=== PATIENT | male | born 1950 | race Caucasian/White ===

== ENCOUNTER 2018-04-14 07:53 | Day surgery (SDC) | payer MEDICARE ==
[~2018-04-14 07:53] MED LIST: LIDOCAINE 1% MDV 20ML VIAL SQ
[2018-04-14] MEDS: LR 1,000 ML IV (08:40)
[2018-04-14] MEDS ORDERED: PROPOFOL 200 MG/20 ML VIAL As Ordered (08:50)
[2018-04-14] MEDS ORDERED: fentaNYL 100 MCG/2 ML INJECTION (J3010) As Ordered (08:50)
[2018-04-14] MEDS ORDERED: LIDOCAINE 2% INJ 100 MG/5 ML SDV (FOR ANES.) As Ordered (08:50)
[2018-04-14] MEDS ORDERED: MIDAZOLAM INJ 2 MG/2 ML VIAL (J2250) As Ordered ×2 (08:50→09:57)
[2018-04-14] MEDS ORDERED: ONDANSETRON 4MG/2ML VIAL (J2405) As Ordered (09:57)
[2018-04-14] MEDS ORDERED: KETOROLAC 60 MG/2 ML VIAL (J1885) As Ordered (09:57)
[2018-04-14] MEDS ORDERED: dexameTHASONE 4 MG/ML 1ML VIAL (J1100) As Ordered (09:57)
[2018-04-14] MEDS: BUPIVACAINE HCL 0.5% 30 ML VIAL As Ordered (10:57)
[2018-04-14] MEDS: BUPIVACAINE LIPOSOME/PF 1.3% 20ML VIAL (13.3MG/ML)(EXPAREL)(C9290 PER1MG) As Ordered (10:57)
[2018-04-14] MEDS ORDERED: MEPERIDINE INJ 25 MG/ML VIAL (J2175) IV (11:45)
[2018-04-14] MEDS ORDERED: ONDANSETRON 4MG/2ML VIAL (J2405) IV (11:45)
[2018-04-14] MEDS ORDERED: fentaNYL 100 MCG/2 ML INJECTION (J3010) IV (11:45)
[2018-04-14] MEDS ORDERED: IBUPROFEN 600 MG TAB PO (11:45)
[2018-04-14] MEDS ORDERED: ACETAMINOPHEN TAB 650MG DOSE (2X325MG) PO (11:45)
[2018-04-14] MEDS ORDERED: PERCOCET 5MG/325MG TAB PO (11:45)
[2018-04-14] MEDS ORDERED: METOCLOPRAMIDE INJ 10MG/2ML VIAL (J2765) IV (11:45)
[2018-04-14] MEDS ORDERED: LR 1,000 ML IV (11:45)
[2018-04-14] MEDS ORDERED: BUPIVACAINE/DEXTROSE 0.75% 2 ML AMP As Ordered (12:21)
== END 2018-04-14 15:30 | disposition home or self-care (01) ==
LOC: M SDC 07:53
DX: K64.8 Other hemorrhoids (principal); E78.00 Pure hypercholesterolemia, unspecified
CPT/HCPCS: 46260

== ENCOUNTER → 2019-08-06 | Outpatient (CLI) | payer MEDICARE ==
[~2019-08-06] MED LIST changes: +FISH120016 PO; -LIDOCAINE 1% MDV 20ML VIAL SQ; +MULT1TAB10 PO; +SILD50TA PO; +VITA50005 PO
[2019-08-06 13:18] LABS: BASO % 0.3 % (0.0-1.0); EOS % 0.3 % (0.0-3.0); HEMATOCRIT 46.9 % (42.0-52.0); HEMOGLOBIN 15.7 g/dl (13.5-17.5); LYMPH # 0.9 10^3/uL (1.5-5.0); LYMPH % 5.6 % (24.0-44.0); MEAN CORPUSCULAR HEMOGLOBIN 32.2 pg (27.0-33.0); MEAN CORPUSCULAR HGB CONC 33.5 g/dl (32.0-36.5); MEAN CORPUSCULAR VOLUME 96.3 fl (80.0-96.0); MONO # 1.1 10^3/uL (0.0-0.8); MONO % 7.1 % (0.0-5.0); NEUTROPHILS # 13.3 10^3/uL (1.5-8.5); NEUTROPHILS % 86.4 % (36.0-66.0); PLATELET COUNT, AUTOMATED 239 10^3/uL (150-450); RED BLOOD COUNT 4.87 10^6/uL (4.30-6.10); WHITE BLOOD COUNT 15.4 10^3/uL (4.0-10.0)
[2019-08-06 13:45] LABS: ALBUMIN 3.4 GM/DL (3.2-5.2); ALT/SGPT 18 U/L (12-78); BILIRUBIN,TOTAL 0.9 MG/DL (0.2-1.0); BLOOD UREA NITROGEN 8 MG/DL (7-18); CALCIUM LEVEL 8.8 MG/DL (8.8-10.2); CARBON DIOXIDE LEVEL 31 MEQ/L (21-32); CHLORIDE LEVEL 103 MEQ/L (98-107); CREATININE FOR GFR 1.07 MG/DL (0.70-1.30); GLOMERULAR FILTRATION RATE > 60.0 (>42); GLUCOSE, FASTING 128 MG/DL (70-100); POTASSIUM SERUM 4.4 MEQ/L (3.5-5.1); SODIUM LEVEL 138 MEQ/L (136-145); TOTAL PROTEIN 6.7 GM/DL (6.4-8.2)
[2019-08-06 13:55] LABS: HEMOGLOBIN A1c 5.5 %
== END ==
LOC: M WUC 10:00
PROVIDERS: ATTEND Physician Assistant
DX: R30.0 Dysuria (principal); Z79.899 Other long term (current) drug therapy

== ENCOUNTER → 2020-10-21 | Outpatient (REF) | payer MEDICARE | LOC: M WUC 21:19 | PROVIDERS: ATTEND Physician Assistant | DX: N39.0 Urinary tract infection, site not specified (principal) ==

== ENCOUNTER → 2020-10-28 | Outpatient (REF) | payer MEDICARE | LOC: M WUC 13:14 | PROVIDERS: ATTEND Physician Assistant | DX: R30.0 Dysuria (principal) ==

== ENCOUNTER 2020-11-03 07:25 | Emergency (ER) | payer MEDICARE ==
[~2020-11-03] VITALS: Ht 182.9 cm; Wt 74.5 kg
[2020-11-03 10:07] LABS: BASO # 0.1 10^3/uL (0.0-0.2); BASO % 0.4 % (0.0-1.0); EOS # 0.1 10^3/uL (0.0-0.5); EOS % 0.5 % (0.0-3.0); HEMATOCRIT 47.3 % (42.0-52.0); HEMOGLOBIN 15.5 g/dl (13.5-17.5); LYMPH # 1.9 10^3/uL (1.5-5.0); LYMPH % 12.1 % (24.0-44.0); MEAN CORPUSCULAR HEMOGLOBIN 31.3 pg (27.0-33.0); MEAN CORPUSCULAR HGB CONC 32.8 g/dl (32.0-36.5); MEAN CORPUSCULAR VOLUME 95.4 fl (80.0-96.0); MONO # 0.8 10^3/uL (0.0-0.8); MONO % 4.8 % (2.0-8.0); NEUTROPHILS # 12.8 10^3/uL (1.5-8.5); NEUTROPHILS % 81.6 % (36.0-66.0); PLATELET COUNT, AUTOMATED 347 10^3/uL (150-450); RED BLOOD COUNT 4.96 10^6/uL (4.30-6.10); WHITE BLOOD COUNT 15.7 10^3/uL (4.0-10.0)
--- NOTE | 2020-11-03 10:14 | REP ---
INDICATION: hematuria. COMPARISON: None. TECHNIQUE: Noncontrast enhanced stone protocol technique using standard helical scanning FINDINGS: The lung bases are clear. Limited evaluation of the solid intra-abdominal organs and gallbladder show no gross abnormalities. Limited evaluation of the pancreas, adrenal glands, and kidneys show no gross abnormalities. There is no nephroureterolithiasis, hydronephrosis, or hydroureter. There are no urinary bladder calcifications. The urinary bladder wall does appear to be somewhat thickened. Limited evaluation of the bowel loops shows sigmoid colon diverticulosis. There is a haziness seen throughout the central mesentery likely secondary to mild chronic mesenteric fibrosis. Limited evaluation of the abdominal aorta and para-aortic regions show no gross abnormalities. There is no free fluid or free air. There is no mass or adenopathy. Bone window technique throughout the examination shows the osseous structures to be within normal limits. IMPRESSION: 1. There is some evidence of thickening of the urias of the urinary bladder which need to be correlated clinically. Cystitis cannot be ruled out. 2. Sigmoid colon diverticulosis. 3. Other findings as described. <Electronically signed by Juan Jose Yanez > 11/03/20 1011
[2020-11-03 10:18] LABS: INR 1.06
[2020-11-03 10:19] LABS: PARTIAL THROMBOPLASTIN TIME 25.8 SECONDS (24.2-38.5)
[2020-11-03 10:34] LABS: ALBUMIN 3.2 GM/DL (3.2-5.2); ALT/SGPT 33 U/L (12-78); BILIRUBIN,TOTAL 0.4 MG/DL (0.2-1.0); BLOOD UREA NITROGEN 12 MG/DL (7-18); CALCIUM LEVEL 8.7 MG/DL (8.8-10.2); CARBON DIOXIDE LEVEL 30 MEQ/L (21-32); CHLORIDE LEVEL 107 MEQ/L (98-107); CREATININE FOR GFR 0.77 MG/DL (0.70-1.30); GLOMERULAR FILTRATION RATE > 60.0 (>42); GLUCOSE, FASTING 89 MG/DL (70-100); POTASSIUM SERUM 4.3 MEQ/L (3.5-5.1); SODIUM LEVEL 141 MEQ/L (136-145); TOTAL PROTEIN 6.9 GM/DL (6.4-8.2)
[2020-11-03 11:56] VITALS: BP 161/75
== END 2020-11-03 12:11 | disposition home or self-care (01) ==
LOC: M ED 07:25
DX: R31.9 Hematuria, unspecified (principal)

== ENCOUNTER → 2020-11-14 | Outpatient (REF) | payer MEDICARE ==
[2020-11-14 13:48] LABS: APPEARANCE, URINE CLEAR (CLEAR); BACTERIA, URINE AUTO NEGATIVE (NEGATIVE); BILIRUBIN, URINE AUTO NEGATIVE (NEGATIVE); BLOOD, URINE BLOOD 2+ (NEGATIVE); COLOR, URINE STRAW (YELLOW); GLUCOSE, URINE (UA) AUTO NEGATIVE (NEGATIVE); KETONE, URINE AUTO NEGATIVE (NEGATIVE); LEUKOCYTE ESTERASE, URINE AUTO 3+ (NEGATIVE); NITRITE, URINE AUTO NEGATIVE (NEGATIVE); PROTEIN, URINE AUTO NEGATIVE (NEGATIVE); RBC, URINE AUTO 0 /HPF (0-3); SPECIFIC GRAVITY URINE AUTO 1.004 (1.002-1.035); SQUAMOUS EPITHELIAL CELL UR AU 0 /HPF (0-6); UROBILINOGEN, URINE AUTO 0.2 mg/dL (0.0-2.0); WBC, URINE AUTO 83 /HPF (0-3)
== END ==
LOC: M SMT 13:01
PROVIDERS: ATTEND Urology
DX: R31.0 Gross hematuria (principal)
CPT/HCPCS: 81001; 87086; 88108; G0463

== ENCOUNTER → 2021-01-01 | Outpatient (REF) | payer MEDICARE ==
[2021-01-01 19:21] LABS: APPEARANCE, URINE HAZY (CLEAR); BACTERIA, URINE AUTO 1+ (NEGATIVE); BILIRUBIN, URINE AUTO NEGATIVE (NEGATIVE); BLOOD, URINE BLOOD NEGATIVE (NEGATIVE); COLOR, URINE YELLOW (YELLOW); GLUCOSE, URINE (UA) AUTO NEGATIVE (NEGATIVE); KETONE, URINE AUTO NEGATIVE (NEGATIVE); LEUKOCYTE ESTERASE, URINE AUTO 1+ (NEGATIVE); NITRITE, URINE AUTO NEGATIVE (NEGATIVE); PROTEIN, URINE AUTO NEGATIVE (NEGATIVE); RBC, URINE AUTO 1 /HPF (0-3); SPECIFIC GRAVITY URINE AUTO 1.012 (1.002-1.035); SQUAMOUS EPITHELIAL CELL UR AU 0 /HPF (0-6); UROBILINOGEN, URINE AUTO 0.2 mg/dL (0.0-2.0); WBC, URINE AUTO 27 /HPF (0-3)
== END ==
LOC: M SMT 17:20
PROVIDERS: ATTEND Urology
DX: N30.00 Acute cystitis without hematuria (principal)

== ENCOUNTER → 2021-02-11 | Outpatient (CLI) | payer MEDICARE ==
[2021-02-11 15:56] LABS: APPEARANCE, URINE CLEAR (CLEAR); BACTERIA, URINE AUTO NEGATIVE (NEGATIVE); BILIRUBIN, URINE AUTO NEGATIVE (NEGATIVE); BLOOD, URINE BLOOD NEGATIVE (NEGATIVE); COLOR, URINE STRAW (YELLOW); GLUCOSE, URINE (UA) AUTO NEGATIVE (NEGATIVE); KETONE, URINE AUTO NEGATIVE (NEGATIVE); LEUKOCYTE ESTERASE, URINE AUTO NEGATIVE (NEGATIVE); NITRITE, URINE AUTO NEGATIVE (NEGATIVE); PROTEIN, URINE AUTO NEGATIVE (NEGATIVE); RBC, URINE AUTO 2 /HPF (0-3); SPECIFIC GRAVITY URINE AUTO 1.006 (1.002-1.035); SQUAMOUS EPITHELIAL CELL UR AU 0 /HPF (0-6); UROBILINOGEN, URINE AUTO 0.2 mg/dL (0.0-2.0); WBC, URINE AUTO 0 /HPF (0-3)
[2021-02-11 16:31] LABS: ALBUMIN 3.2 GM/DL (3.2-5.2); ALT/SGPT 26 U/L (12-78); BILIRUBIN,TOTAL 0.5 MG/DL (0.2-1.0); BLOOD UREA NITROGEN 15 MG/DL (7-18); CALCIUM LEVEL 8.8 MG/DL (8.8-10.2); CARBON DIOXIDE LEVEL 33 MEQ/L (21-32); CHLORIDE LEVEL 103 MEQ/L (98-107); CHOLESTEROL LEVEL 149 MG/DL (<200); CHOLESTEROL RISK RATIO 3.725 (<5); CREATININE FOR GFR 0.95 MG/DL (0.70-1.30); GLOMERULAR FILTRATION RATE > 60.0 (>42); GLUCOSE, FASTING 100 MG/DL (70-100); HDL CHOLESTEROL 40 MG/DL (>40); LDL CHOLESTEROL 87 MG/DL (<100); NON-HDL-C 109 MG/DL; POTASSIUM SERUM 4.6 MEQ/L (3.5-5.1); SODIUM LEVEL 138 MEQ/L (136-145); TOTAL PROTEIN 6.4 GM/DL (6.4-8.2); TRIGLYCERIDES LEVEL 108 MG/DL (<150)
== END ==
LOC: M WUC 14:21
PROVIDERS: ATTEND Nurse Practitioner Family
DX: Z00.00 Encounter for general adult medical examination without abnormal findings (principal); Z79.899 Other long term (current) drug therapy
CPT/HCPCS: 36415; 80053; 80061; 81001; G0103

== ENCOUNTER → 2021-03-22 | Outpatient (CLI) | payer MEDICARE ==
[~2021-03-22] MED LIST changes: +ALFU10TA3 PO; +ERGO500029 PO; +TAMS1CAP17 PO; +VITMTA PO
== END ==
LOC: M LABSMTC 10:43
PROVIDERS: ATTEND Anesthesiology
DX: Z01.818 Encounter for other preprocedural examination (principal); Z20.828 Contact with and (suspected) exposure to other viral communicable diseases

== ENCOUNTER 2021-03-27 08:54 | Day surgery (SDC) | payer MEDICARE ==
[~2021-03-27] VITALS: Ht 182.9 cm; Wt 76.2 kg
[~2021-03-27 08:54] MED LIST changes: +LIDOCAINE 2% 100MG/5ML SDV (FOR ANES.) As Ordered ONE; +NS 1,000 ML IV ONE; +propofoL 200 MG/20 ML VIAL As Ordered ONE
--- OUTSIDE RECORDS SUMMARY | 2021-03-27 08:59 | CCD | Continuity of Care Document ---
Author Author Vasyl [facility] Organization Unknown Address [address] [place] [address] Phone [phone] Care Team Providers Care Chief Revenue Officer Name Role Phone [facility] - Otolaryngology AUTM [phone] Problems Active Problems Provider Date Allergic rhinitis Anurag Graham M.D. Onset: 2010 Vitamin D deficiency Anurag Graham M.D. Onset: 11/20 Mixed hyperlipidemia Anurag Graham M.D. Onset: 11/20 Social History Type Date Description Comments Sex Unknown Tobacco Use Start: Unknown End: Unknown former cigarette smo ker Tobacco Use Start: Unknown Never Used Smokeless Tobacco ETOH Use Consumes 1 beer per week Tobacco Use Start: Unknown End: Unknown Patient is a former smoker Smoked ocassionally 50 years ago Recreational Drug Use Never Used Drugs Exercise Type/Frequency Exercises regularly Sun Exposure Does not use sunscreen Seat Belt/Car Seat Always uses seat belt Smoke Alarms Yes Smoke Alarms Carbon Monoxide Detector: Yes Allergies, Adverse Reactions, Alerts Description No Known Drug Allergies Medications Active Medications SIG Qnty Indications Ordering Provide r Date Vitamin D (Ergocalciferol) 1.25mg (58350 Ut) Capsules take 1 capsule by mouth once weekly 12caps Clau Quispe FNP 11/28/2019 Sildenafil Citrate 100mg Tablets 1/2-1 tab by mouth at least 30 minutes prior to intercourse 30tabs Clau Stafford FNP 01/31/2019 Multivitamin Adults 50+ Adlt 50+ T ablets daily Unknown Fish Oil Burp-Less 1200mg Capsules daily Unknown Tamsulosin HCL 0.4mg Capsules take one capsule by mouth every day for prostate Unknown Immunizations CPT Code Status Date Vaccine Lot # [id number] Given 02/20/2021 Influenza Virus Vaccine, Ramy drivalent,multidose vial [id number] Given 07/21/2020 Moderna Sars-(Co vid-19) vaccine, mRNA, LNP-S, PF, 100 mcg/ 0.5 mL [id number] Given 06/23/2020 Moderna Sars-(Co vid-19) vaccine, mRNA, LNP-S, PF, 100 mcg/ 0.5 mL 32571 Given 02/20/2020 Influenza Virus Vaccine, Ramy drivalent,multidose vial [id number] Given 02/17/2019 Influenza Virus Vaccine, Ramy drivalent,multidose vial [id number] 12498 Given 02/15/2018 Influenza Virus Vaccine, Ramy drivalent,multidose vial [id number] Given 02/05/2017 Influenza Vaccine (Fluzone)( medicare) [id number] 34985 Given 02/07/2016 Pneumococcal Vaccine [id number] Given 01/31/2016 Influenza Vaccine (Fluzone)( medicare) [id number] 41501 Given 01/31/2015 Boostrix (Tdap) Tetnus, Diphtheria Toxoids & Acellular Pertussis [id number] 06963 Given 01/31/2015 Prevnar 13 [id number] Given 01/29/2015 Zostavax Vital Signs Date Vital Result Comment 02/20/2021 9:12am BP Systolic 121 mmHg BP Diastolic 59 mmHg Heart Rate 68 /min Body Temperature 97.0 F Respiratory Rate 16 /min Height 71 inches 5'11" Weight 171.25 lb O2 % BldC Oximetry 98 % Peak Expiratory Flow Rate 509 Estimated Peak Flow Rate [place] Body Weight 172 lb BMI (Body Mass Index) 23.9 kg/m2 02/20/2020 8:45am BP Systolic 126 mmHg BP Diastolic 62 mmHg Heart Rate 67 /min Body Temperature 97.6 F Respiratory Rate 15 /min Height 71 inches 5'11" Weight 168.12 lb O2 % BldC Oximetry 98 % Peak Expiratory Flow Rate 497 Estimated Peak Flow Rate [place] Body Weight 172 lb BMI (Body Mass Index) 23.4 kg/m2 Results Test Acquired Date Facility Test Result H/L Range Note Comprehensive Metabolic Profil 02/11/2021 [facility] [phone] Glucose, Fasting 100 mg/dL Normal 70-100 Blood Urea Nitrogen 15 mg/dL Normal 7-18 Creatinine For GFR 0.95 mg/dL Normal 0.70-1.30 Glomerular Filtration Rate > 60.0 Normal >42 1 Sodium Level 138 mEq/L Normal 136-145 Potassium Serum 4.6 mEq/L Normal 3.5-5.1 Chloride Level 103 mEq/L Normal 98-107 Carbon Dioxide Level 33 mEq/L High 21-32 Anion Gap 2 mEq/L Low 8-16 Calcium Level 8.8 mg/dL Normal 8.8-10.2 Ast/Sgot 16 U/L Normal 7-37 Alt/SGPT 26 U/L Normal 12-78 Alkaline Phosphatase 57 U/L Normal 45-117 Bilirubin,Total 0.5 mg/dL Normal 0.2-1.0 Total Protein 6.4 GM/DL Normal 6.4-8.2 Albumin 3.2 GM/DL Normal 3.2-5.2 Albumin/Globulin Ratio 1.0 Normal Lipid Panel [facility] [phone] Triglycerides Level 108 mg/dL Normal <150 Cholesterol Level 149 mg/dL Normal <200 HDL Cholesterol 40 mg/dL Normal >40 LDL Cholesterol 87 mg/dL Normal <100 Non-HDL-C 109 mg/dL Normal Cholesterol Risk Ratio 3.725 Normal <5 Ua Routine 02/11/[facility] [phone] Appearance, Urine CLEAR Normal Clear Color, Urine STRAW Normal Yellow PH,Urine 6.0 units Normal 5.0-9.0 Specific [place] Urine Auto 1.006 Normal 1.002-1.035 Protein, Urine Auto NEGATIVE mg/dL Normal Negative Glucose, Urine (Ua) Auto NEGATIVE mg/dL Normal Negative Ketone, Urine Auto NEGATIVE mg/dL Normal Negative Urobilinogen, Urine Auto 0.2 mg/dL Normal 0.0-2.0 Bilirubin, Urine Auto NEGATIVE Normal Negative Nitrite, Urine Auto NEGATIVE Normal Negative Leukocyte Esterase, Urine Auto NEGATIVE Normal Negative Blood, Urine Blood NEGATIVE Normal Negative WBC, Urine Auto 0 /HPF Normal 0-3 RBC, Urine Auto 2 /HPF Normal 0-3 Bacteria, Urine Auto NEGATIVE Normal Negative Squamous Epithelial Cell Ur AU 0 /HPF Normal 0-6 Hyaline Cast, Urine Auto 0 /LPF Normal 0-1 Laboratory test finding 02/11/2021 [facility] [phone] PSA Screening 4.91 NG/ML High < 4.00 2 CBC With Differential 11/03/2020 [facility] [place] [address] [phone] White Blood Count 15.7 10 High 4.0-10.0 Red Blood Count 4.96 10 Normal 4.30-6.10 Hemoglobin 15.5 g/dL Normal 13.5-17.5 Hematocrit 47.3 % Normal 42.0-52.0 Mean Corpuscular Volume 95.4 fl Normal 80.0-96.0 Mean Corpuscular Hemoglobin 31.3 pg Normal 27.0-33.0 Mean Corpuscular HGB Conc 32.8 g/dL Normal 32.0-36.5 Red Cell Distribution Width 12.3 % Normal 11.5-14.5 Platelet Count, Automated 347 10 Normal 150-450 Neutrophils % 81.6 % High 36.0-66.0 Lymph % 12.1 % Low 24.0-44.0 Orange % 4.8 % Normal 2.0-8.0 Eos % 0.5 % Normal 0.0-3.0 Baso % 0.4 % Normal 0.0-1.0 Immature Granulocyte % 0.6 % Normal 0-3.0 Nucleated Red Blood Cell % 0.0 % Normal 0-0 Neutrophils # 12.8 10 High 1.5-8.5 Lymph # 1.9 10 Normal 1.5-5.0 Orange # 0.8 10 Normal 0.0-0.8 Eos # 0.1 10 Normal 0.0-0.5 Baso # 0.1 10 Normal 0.0-0.2 PT & Aptt 11/03/2020 [place] [address] [phone] Prothrombin Time 14.0 seconds Normal 12.5-14.3 Inr 1.06 Normal 3 Partial Thromboplastin Time 25.8 seconds Normal 24.2-38.5 Comprehensive Metabolic Profil 11/03/2020 [place], [place] [address] [phone] Glucose, Fasting 89 mg/dL Normal 70-100 Blood Urea Nitrogen 12 mg/dL Normal 7-18 Creatinine For GFR 0.77 mg/dL Normal 0.70-1.30 Glomerular Filtration Rate > 60.0 Normal >42 4 Sodium Level 141 mEq/L Normal 136-145 Potassium Serum 4.3 mEq/L Normal 3.5-5.1 Chloride Level 107 mEq/L Normal 98-107 Carbon Dioxide Level 30 mEq/L Normal 21-32 Anion Gap 4 mEq/L Low 8-16 Calcium Level 8.7 mg/dL Low 8.8-10.2 Ast/Sgot 15 U/L Normal 7-37 Alt/SGPT 33 U/L Normal 12-78 Alkaline Phosphatase 68 U/L Normal 45-117 Bilirubin,Total 0.4 mg/dL Normal 0.2-1.0 Total Protein 6.9 GM/DL Normal 6.4-8.2 Albumin 3.2 GM/DL Normal 3.2-5.2 Albumin/Globulin Ratio 0.9 Normal Ua W/ Reflex To Culture 11/03/2020 Patient Service [facility] [place], [place] [id number] [phone] Appearance, Urine RFX CLOUDY High Clear Color, Urine RFX ELSY Normal Yellow PH,Urine RFX 6.0 units Normal 5.0-9.0 Specific [place] Ur Auto RFX 1.023 Normal 1.002-1.035 Protein, Urine Auto RFX 2+ mg/dL High Negative Glucose, Urine (Ua) Auto RFX NEGATIVE mg/dL Normal Negative Ketone, Urine Auto RFX NEGATIVE mg/dL Normal Negative Urobilinogen, Urine Auto RFX 0.2 mg/dL Normal 0.0-2.0 Bilirubin, Urine Auto RFX NEGATIVE Normal Negative Nitrite, Urine Auto RFX NEGATIVE Normal Negative Leukocyte Esterase Ur Auto RFX 2+ High Negative Blood, Urine Blood RFX 3+ High Negative WBC, Urine Auto RFX TNTC /HPF High 0-3 RBC, Urine Auto RFX TNTC /HPF High 0-3 Bacteria, Urine Auto RFX NEGATIVE Normal Negative Squam Epithelial Cell Ur Aurfx 0 /HPF Normal 0-6 Renal Epithelial Cells RFX 2 /HPF Normal None Mucus, Urine RFX SMALL Normal Negative Hyaline Cast, Urine Auto RFX 0 /LPF Normal 0-1 Reflex Urine Culture 11/03/2020 Patient Service [facility] [place] [address] [phone] Reflex Urine Culture FULL REPORT IN L <SEE NOTE> Norm al 5 1 Units are mL/min/1.73 m2 Chronic Kidney Disease Staging per NKF: Stage I & II GFR >=60 Normal to Mildly Decreased Stage III GFR 30-59 Moderately Decreased Stage IV GFR 15-29 Severely Decreased Stage V GFR <15 Very Little GFR Left ESRD GFR <15 on SEWER HAND 2 The PSA assay is performed o n the Siemens Mccormick analyzer by LOCI sandwich chemiluminescent immunoassay and should not be compared interchangeably with other methods. It should not be used alone as a screening test or diagnosis for the presence or absence of malignant disease. Predictions of disease recurrence should not be based solely on values obtained from serial patient serum values. 3 THERAPUTIC HUMAN INR VALUES INDICATIONS NORMAL RANGES PROPHYLAXIS/TREATMENT OF: VENOUS THROMBOSIS 2.0-3.0 PULMONARY EMBOLISM 2.0-3.0 PREVENTION OF SYSTEMIC EMBOLISM FROM: TISSUE HEART VALVES 2.0-3.0 ACUTE MYOCARDIAL INFARCTION 2.0-3.0 VALVULAR HEART DISEASE 2.0-3.0 ATRIAL FIBRILLATION 2.0-3.0 MECHANICAL VALVES(HIGH RISK) 2.5-3.5 RECURRENT MYOCARDIAL INFARCTION 2.5-3.5 4 Units are mL/min/1.73 m2 Chronic Kidney Disease Staging per NKF: Stage I & II GFR >=60 Normal to Mildly Decreased Stage III GFR 30-59 Moderately Decreased Stage IV GFR 15-29 Severely Decreased Stage V GFR <15 Very Little GFR Left ESRD GFR <15 on SEWER HAND 5 FULL REPORT IN LAB NOTES (eC W and Medent). NO GROWTH CLINICAL SIGNIFICANCE 1 ORGANISM Procedures Date Code Description Status 02/20/2021 30252 Office/Outpatient Established Lo w MDM 20-29 Min Completed Medical Devices Description No Information Available Encounters Type Date Location Provider Dx Diagnosis Office Visit 02/20/2021 9:15a Main Office Clau Stafford FNP Z00.0 0 Encntr for general adult medical exam w/o abnormal findings E55.9 Vitamin D deficiency, unspec ified E78.2 Mixed hyperlipidemia N40.1 Benign prostatic hyperplasia with lower urinary tract symp Z23 Encounter for immunization Assessments Date Code Description Provider 02/20/2021 Z00.00 Encounter for genera l adult medical examination without abnormal findings Clau Stafford FNP 02/20/2021 E55.9 Vitamin D deficiency, unspecifie d Clau Stafford FNP 02/20/2021 E78.2 Mixed hyperlipidemia Jake Stafford FNP 02/20/2021 N40.1 Benign prostatic hyperplasia wit h lower urinary tract sympto Clau Stafford FNP 02/20/2021 Z23 Encounter for immunization Clau Quispe FNP Plan of Treatment Future Appointment(s):* 02/19/2022 9:30 am - Clau Stafford FNP at Main Office 02/20/2021 - Clau Stafford FNP* Z00.00 Encounter for general adult medical examination without abnormal findings* Comments:* Health maintenance up to date. Overall doing well. LORNE/PHQ 9/CAGE questionnaire reviewed. Discussed healthy lifestyle choices. Encouraged to consider advanced directives and healthcare proxy. * Follow up:* annually * E55.9 Vitamin D deficiency, unspecified* Comments:* continue supplementation * E78.2 Mixed hyperlipidemia* Comments:* continue fish oil and diet changes * N40.1 Benign prostatic hyperplasia with lower urinary tract sympto* Comments: * following with urology. Elevated PSA may be related to recent infection however given family hx will send the result to urology for evaluation * Z23 Encounter for immunization Functional Status Functional Condition Comment Date Status Bifocal glasses Active Independent with all ADL's Activ e Independent with all IADL's Acti ve Mental Status Description No Information Available Referrals Description No Information Available
--- OUTSIDE RECORDS SUMMARY | 2021-03-27 08:59 | CCD | Continuity of Care Document ---
Author Author Vasyl WHELAN M.D. Organization Unknown Address [address] [place] [address] Phone [phone] Care Team Providers Care Safety Trainer Name Role Phone [facility] - Otolaryngology AUTM [phone] Problems Active Problems Provider Date Allergic rhinitis Anurag Whelan M.D. Onset: 2010 Vitamin D deficiency Anurag Whelan M.D. Onset: 11/20 Mixed hyperlipidemia Anurag Whelan M.D. Onset: 11/20 Social History Type Date [...] Provide r Date Vitamin D (Ergocalciferol) 1.25mg (91846 Ut) Capsules take 1 capsule by mouth [...] CPT Code Status Date Vaccine Lot # [id number] Given 02/20/2021 Influenza Virus Vaccine, Ramy drivalent,multidose vial [id number] 16224 Given 07/21/2020 Moderna Sars-(Co vid-19) vaccine, mRNA, LNP-S, PF, 100 mcg/ 0.5 mL 61376 Given 06/23/2020 Moderna Sars-(Co vid-19) vaccine, mRNA, LNP-S, PF, 100 mcg/ 0.5 mL 51023 Given 02/20/2020 Influenza Virus Vaccine, Ramy drivalent,multidose vial [id number] 66283 Given 02/17/2019 Influenza Virus Vaccine, Ramy drivalent,multidose vial [id number] 08530 Given 02/15/2018 Influenza Virus Vaccine, Ramy drivalent,multidose vial [id number] Given 02/05/2017 Influenza Vaccine (Fluzone)( medicare) [id number] 11144 Given 02/07/2016 Pneumococcal Vaccine [id number] Q2038 Given 01/31/2016 Influenza Vaccine (Fluzone)( medicare) [id number] [id number] Given 01/31/2015 Boostrix (Tdap) Tetnus, Diphtheria Toxoids & Acellular Pertussis [id number] 48381 Given 01/31/2015 Prevnar 13 [id number] 30212 Given 01/29/2015 Zostavax Vital Signs Date Vital Result Comment 02/20/2021 9:12am BP Systolic 121 mmHg BP Diastolic 59 mmHg Heart Rate 68 /min Body Temperature 97.0 F Respiratory Rate 16 /min Height 71 inches 5'11" Weight 171.25 lb O2 % BldC Oximetry 98 % Peak Expiratory Flow Rate 509 Estimated Peak Flow Rate [place] Body Weight 172 lb BMI (Body Mass Index) 23.9 kg/m2 02/20/2020 8:45am BP Systolic 126 mmHg BP Diastolic 62 mmHg Heart Rate 67 /min Body Temperature 97.6 F Respiratory Rate 15 /min Height 71 inches 5'11" Weight 168.12 lb O2 % BldC Oximetry 98 % Peak Expiratory Flow Rate 497 Estimated Peak Flow Rate [place] Body Weight 172 lb BMI (Body Mass Index) 23.4 kg/m2 Results Test Acquired Date Facility Test Result H/L Range Note Comprehensive Metabolic Profil 02/11/2021 [facility] [phone] Glucose, Fasting 100 mg/dL Normal 70-100 Blood [...] Albumin/Globulin Ratio 1.0 Normal Lipid Panel [facility] [phone] Triglycerides Level 108 mg/dL Normal <150 Cholesterol Level 149 mg/dL Normal <200 HDL Cholesterol 40 mg/dL Normal >40 LDL Cholesterol 87 mg/dL Normal <100 Non-HDL-C 109 mg/dL Normal Cholesterol Risk Ratio 3.725 Normal <5 Ua Routine 02/11/[facility]21 [facility] [phone] Appearance, Urine CLEAR Normal Clear Color, Urine STRAW Normal Yellow PH,Urine 6.0 units Normal 5.0-9.0 Specific [place] Urine Auto 1.006 Normal 1.002-1.035 Protein, Urine [...] /LPF Normal 0-1 Laboratory test finding 02/11/2021 [facility] [phone] PSA Screening 4.91 NG/ML High < 4.00 2 CBC With Differential 11/03/2020 Patient [place] [address] [phone] White Blood Count 15.7 10 High 4.0-10.0 [...] 36.0-66.0 Lymph % 12.1 % Low 24.0-44.0 [place] % 4.8 % Normal 2.0-8.0 Eos % 0.5 % Normal 0.0-3.0 Baso % 0.4 % Normal 0.0-1.0 Immature Granulocyte % 0.6 % Normal 0-3.0 Nucleated Red Blood Cell % 0.0 % Normal 0-0 Neutrophils # 12.8 10 High 1.5-8.5 Lymph # 1.9 10 Normal 1.5-5.0 [place] # 0.8 10 Normal 0.0-0.8 Eos # 0.1 10 Normal 0.0-0.5 Baso # 0.1 10 Normal 0.0-0.2 PT & Aptt 11/03/2020 [place] [address] [phone] Prothrombin Time 14.0 seconds Normal 12.5-14.3 Inr 1.06 Normal 3 Partial Thromboplastin Time 25.8 seconds Normal 24.2-38.5 Comprehensive Metabolic Profil 11/03/2020 [place] [address] [phone] Glucose, Fasting 89 mg/dL Normal 70-100 Blood [...] Reflex To Culture 11/03/2020 Patient Service Center [place], [place] [id number] [phone] Appearance, Urine RFX CLOUDY High Clear Color, Urine RFX ELSY Normal Yellow PH,Urine RFX 6.0 units Normal 5.0-9.0 Specific [place] Ur Auto RFX 1.023 Normal 1.002-1.035 Protein, [...] 0-1 Reflex Urine Culture 11/03/2020 Patient Service [facility] [place] [address] [phone] Reflex Urine Culture FULL REPORT IN L <SEE NOTE> Norm al 5 1 Units are mL/min/1.73 m2 Chronic Kidney Disease Staging per NKF: Stage I & II GFR >=60 Normal to Mildly Decreased Stage III GFR 30-59 Moderately Decreased Stage IV GFR 15-29 Severely Decreased Stage V GFR <15 Very Little GFR Left ESRD GFR <15 on ANTHROPOLOGY INSTRUCTOR 2 The PSA assay is performed o n the Siemens [place] analyzer by LOCI sandwich chemiluminescent immunoassay and [...] Little GFR Left ESRD GFR <15 on ANTHROPOLOGY INSTRUCTOR 5 FULL REPORT IN LAB NOTES (eC W and Medent). NO GROWTH CLINICAL SIGNIFICANCE 1 ORGANISM Procedures Date Code Description Status 02/20/2021 32858 Office/Outpatient Established Lo w MDM 20-29 Min Completed Medical Devices Description No Information Available Encounters Type Date Location Provider Dx Diagnosis Office Visit 02/20/2021 9:15a Main Office Clau Stafford FNP Z00.0 0 Encntr for general adult medical exam w/o abnormal findings E55.9 Vitamin D deficiency, unspec ified E78.2 Mixed hyperlipidemia N40.1 Benign prostatic hyperplasia with lower urinary tract symp Assessments Date Code Description Provider 02/20/2021 Z00.00 Encounter for genera l adult medical examination without abnormal findings Clau Stafford FNP 02/20/2021 E55.9 Vitamin D deficiency, unspecifie d Clau Stafford FNP 02/20/2021 E78.2 Mixed hyperlipidemia Jake Stafford FNP 02/20/2021 N40.1 Benign prostatic hyperplasia wit h lower urinary tract sympto Clau Stafford FNP Plan of Treatment Future Appointment(s):* 02/19/2022 [...] send the result to urology for evaluation Functional Status Functional Condition Comment Date Status Bifocal glasses Active Independent with all ADL's Activ e Independent with all IADL's Acti ve Mental Status Description No Information Available Referrals Description No Information Available
--- OUTSIDE RECORDS SUMMARY | 2021-03-27 09:00 | CCD ---
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 Name Role Phone BECCA, Shilpa SAMUEL PA Unavailable Unavailable LETTIERE, A LIZZIE PA Unavailable Unavailable LETTIERE, A LIZZIE PA Unavailable Unavailable LETTIERE, A LIZZIE PA Unavailable Unavailable LETTIERE, A LIZZIE PA Unavailable Unavailable LETTIERE, A LIZZIE PA Unavailable Unavailable LETTIERE, A LIZZIE PA Unavailable Unavailable LETTIERE, A LIZZIE PA Unavailable Unavailable LETTIERE, A LIZZIE PA Unavailable Unavailable LETTIERE, A LIZZIE PA Unavailable Unavailable LETTIERE, A LIZZIE PA Unavailable Unavailable LETTIERE, A LIZZIE PA Unavailable Unavailable LETTIERE, A LIZZIE PA Unavailable Unavailable LETTIERE, A LIZZIE PA Unavailable Unavailable LETTIERE, A LIZZIE PA Unavailable Unavailable LETTIERE, A LIZZIE PA Unavailable Unavailable LETTIERE, A LIZZIE PA Unavailable Unavailable LETTIERE, A LIZZIE PA Unavailable Unavailable LETTIERE, A LIZZIE PA Unavailable Unavailable LETTIERE, A LIZZIE PA Unavailable Unavailable LETTIERE, A LIZZIE PA Unavailable Unavailable LETTIERE, A LIZZIE PA Unavailable Unavailable LETTIERE, A LIZZIE PA Unavailable Unavailable LETTIERE, A LIZZIE PA Unavailable Unavailable LETTIERE, A LIZZIE PA Unavailable Unavailable LETTIERE, A LIZZIE PA Unavailable Unavailable LETTIERE, A LIZZIE PA Unavailable Unavailable LETTIERE, A LIZZIE PA Unavailable Unavailable LETTIERE, A LIZZIE PA Unavailable Unavailable LETTIERE, A LIZZIE PA Unavailable Unavailable LETTIERE, A LIZZIE PA Unavailable Unavailable Pleskach, Clau DIRECTOR OF CODING Unavailable Unavailable Pleskach, Clau DIRECTOR OF CODING Unavailable Unavailable Pleskach, Clau DIRECTOR OF CODING Unavailable Unavailable Pleskach, Clau DIRECTOR OF CODING Unavailable Unavailable Pleskach, Clau DIRECTOR OF CODING Unavailable Unavailable Pleskach, Clau DIRECTOR OF CODING Unavailable Unavailable Pleskach, Clau DIRECTOR OF CODING Unavailable Unavailable Pleskach, Clau DIRECTOR OF CODING Unavailable Unavailable Pleskach, Clau DIRECTOR OF CODING Unavailable Unavailable Pleskach, Clau DIRECTOR OF CODING Unavailable Unavailable Pleskach, Clau DIRECTOR OF CODING Unavailable Unavailable Pleskach, Clau DIRECTOR OF CODING Unavailable Unavailable Pleskach, Clau DIRECTOR OF CODING Unavailable Unavailable Pleskach, Clau DIRECTOR OF CODING Unavailable Unavailable Pleskach, Clau DIRECTOR OF CODING Unavailable Unavailable Pleskach, Clau DIRECTOR OF CODING Unavailable Unavailable Pleskach, Clau DIRECTOR OF CODING Unavailable Unavailable Pleskach, Clau DIRECTOR OF CODING Unavailable Unavailable Pleskach, Clau DIRECTOR OF CODING Unavailable Unavailable Pleskach, Clau DIRECTOR OF CODING Unavailable Unavailable Pleskach, Clau DIRECTOR OF CODING Unavailable Unavailable Pleskach, Clau DIRECTOR OF CODING Unavailable Unavailable Pleskach, Clau DIRECTOR OF CODING Unavailable Unavailable Pleskach, Clau DIRECTOR OF CODING Unavailable Unavailable Pleskach, Clau DIRECTOR OF CODING Unavailable Unavailable Pleskach, Clau DIRECTOR OF CODING Unavailable Unavailable Pleskach, Clau DIRECTOR OF CODING Unavailable Unavailable Pleskach, Clau DIRECTOR OF CODING Unavailable Unavailable Pleskach, Clau DIRECTOR OF CODING Unavailable Unavailable Pleskach, Clau DIRECTOR OF CODING Unavailable Unavailable Pleskach, Clau DIRECTOR OF CODING Unavailable Unavailable Pleskach, Clau DIRECTOR OF CODING Unavailable Unavailable Pleskach, Clau DIRECTOR OF CODING Unavailable Unavailable Pleskach, Clau DIRECTOR OF CODING Unavailable Unavailable Pleskach, Clau DIRECTOR OF CODING Unavailable Unavailable Pleskach, Clau DIRECTOR OF CODING Unavailable Unavailable Pleskach, Clau DIRECTOR OF CODING Unavailable Unavailable Pleskach, Clau DIRECTOR OF CODING Unavailable Unavailable Pleskach, Clau DIRECTOR OF CODING Unavailable Unavailable Pleskach, Clau DIRECTOR OF CODING Unavailable Unavailable Pleskach, Clau DIRECTOR OF CODING Unavailable Unavailable Pleskach, Lcau DIRECTOR OF CODING Unavailable Unavailable Pleskach, Clau DIRECTOR OF CODING Unavailable Unavailable Pleskach, Clau DIRECTOR OF CODING Unavailable Unavailable JONNANDREA PA Unavailable Unavailable JONNANDREA SLATER PA Unavailable Unavailable JONNANDREA SLATER PA Unavailable Unavailable JONNANDREA SLATER PA Unavailable Unavailable JONNANDREA PA Unavailable Unavailable JONNANDREA PA Unavailable Unavailable JONNANDREA PA Unavailable Unavailable JONNANDREA PA Unavailable Unavailable JONNANDREA PA Unavailable Unavailable JONNANDREA SLATER PA Unavailable Unavailable JONNANDREA PA Unavailable Unavailable JONN, ANDREA PA Unavailable Unavailable JONN, ANDREA PA Unavailable Unavailable JONN, ANDREA PA Unavailable Unavailable JONN, ANDREA PA Unavailable Unavailable JONN, ANDREA PA Unavailable Unavailable JONN, ANDREA PA Unavailable Unavailable JONN, ANDREA PA Unavailable Unavailable JONN, ANDREA PA Unavailable Unavailable JONN, ANDREA PA Unavailable Unavailable JONN, ANDREA PA Unavailable Unavailable JONN, ANDREA PA Unavailable Unavailable JONN, ANDREA PA Unavailable Unavailable JONN, ANDREA PA Unavailable Unavailable JONN, ANDREA PA Unavailable Unavailable JONN, ANDREA PA Unavailable Unavailable JONN, ANDREA PA Unavailable Unavailable JONN, ANDREA PA Unavailable Unavailable JONN, ANDREA PA Unavailable Unavailable JONN, ANDREA PA Unavailable Unavailable JONN, ANDREA PA Unavailable Unavailable JONN, ANDREA PA Unavailable Unavailable JONN, ANDREA PA Unavailable Unavailable JONN, ANDREA PA Unavailable Unavailable JONN, ANDREA PA Unavailable Unavailable JONN, ANDREA PA Unavailable Unavailable Tse, L Mary Lou RPA Unavailable Unavailable Tse, L Mary Lou RPA Unavailable Unavailable Tse, L Mary Lou RPA Unavailable Unavailable Tse, L Mary Lou RPA Unavailable Unavailable Tse, L Mary Lou RPA Unavailable Unavailable Tse, L Mary Lou RPA Unavailable Unavailable Tse, L Mary Lou RPA Unavailable Unavailable Tse, L Mary Lou RPA Unavailable Unavailable Tse, L Mary Lou RPA Unavailable Unavailable Tse, L Mary Lou RPA Unavailable Unavailable Tse, L Mary Lou RPA Unavailable Unavailable Tse, L Mary Lou RPA Unavailable Unavailable Tse, L Mary Lou RPA Unavailable Unavailable Tse, L Mary Lou RPA Unavailable Unavailable Tse, L Mary Lou RPA Unavailable Unavailable Ste, L Mary Lou RPA Unavailable Unavailable Tse, L Mary Lou RPA Unavailable Unavailable Tse, L Mary Lou RPA Unavailable Unavailable Tse, L Mary Lou RPA Unavailable Unavailable Tse, L Mary Lou RPA Unavailable Unavailable Tse, L Mary Lou RPA Unavailable Unavailable Tse, L Mary Lou RPA Unavailable Unavailable Tse, L Mary Lou RPA Unavailable Unavailable Tse, L Mary Lou RPA Unavailable Unavailable Tse, L Mary Lou RPA Unavailable Unavailable Tse, L Mary Lou RPA Unavailable Unavailable Tse, L Mary Lou RPA Unavailable Unavailable Tse, L Mary Lou RPA Unavailable Unavailable Tse, L Mary Lou RPA Unavailable Unavailable Tse, L Mary Lou RPA Unavailable Unavailable Tse, L Mary Lou RPA Unavailable Unavailable Tse, L Mary Lou RPA Unavailable Unavailable Re-disclosure Warning The records that you are about to access may contain information from federally-assisted alcohol or drug abuse programs. If such information is present, then the following federally mandated warning applies: This information has been disclosed to you from records protected by federal confidentiality rules (42 CFR part 2). The federal rules prohibit you from making any further disclosure of this information unless further disclosure is expressly permitted by the written consent of the person to whom it pertains or as otherwise permitted by 42 CFR part 2. A general authorization for the release of medical or other information is NOT sufficient for this purpose. The Federal rules restrict any use of the information to criminally investigate or prosecute any alcohol or drug abuse patient.The records that you are about to access may contain highly sensitive health information, the redisclosure of which is protected by Article 27-F of the [facility] Public Health law. If you continue you may have access to information: Regarding HIV / AIDS; Provided by facilities licensed or operated by the [facility] Office of Mental Health; or Provided by the [facility] Office for People With Developmental Disabilities. If such information is present, then the following [facility] mandated warning applies: This information has been disclosed to you from confidential records which are protected by state law. State law prohibits you from making any further disclosure of this information without the specific written consent of the person to whom it pertains, or as otherwise permitted by law. Any unauthorized further disclosure in violation of state law may result in a fine or usp sentence or both. A general authorization for the release of medical or other information is NOT sufficient authorization for further disc losure. Family History Family Member Name Family Member Gender Family Member Status Date o f Status Description Data Source(s) Unknown Female Problem [facility] ([facility]) Unknown Male Problem [facility] ([facility] Encounters Encounter Providers Location Date Indications Data Source(s ) [place] [address] [facility] [address] 03/05/2021 12:00:00 AM EDT eCW1 ([facility]) Outpatient Attender: Clau Stafford [facility] Main Office 02/20/2021 0 9:15:00 AM EDT [facility] ([facility] Outpatient Attender: Mary Lou Barrett/Cayetano/Bandar/Shana jose 02/05/2021 11:15:00 AM EDT [facility] ([facility]) Unknown [address] [facility] [address] 01/27/2021 12:00:00 AM EDT [facility] Unknown [address] [facility] [place] [address] 01/14/2021 12:00:00 AM EDT [facility]CW1 [facility]) Unknown [address] [facility] [address] 01/06/2021 12:00:00 AM EDT eCW1 ([facility]) Unknown [address] [facility] [address] 01/03/2021 12:00:00 AM EDT eCW1 ([facility]) (Cysto1) Urology [address] [place] [address] 01/01/2021 12:00:00 AM EDT eCW1 ([facility]) Unknown [address] [facility] [address] 12/25/2020 12:00:00 AM EDT eCW1 ([facility]) Outpatient [address] [facility] [address] 11/14/2020 12:00:00 AM EDT [facility]CW1 ([facility]) Outpatient Attender: LIZZIE Sethi epifanio 10/28/2020 01:00:00 PM EDT [facility] ([facility]) Outpatient Attender: ANDREA Sethia ry 10/21/2020 03:15:00 PM EDT [facility] ([facility]) Outpatient Attender: Clau Stafford [facility] Main Office 02/20/2020 0 8:45:00 AM EDT [facility] ([facility] Immunizations Vaccine Date Status Description Data Source(s) COVID-19 VACCINE Moderna 03/10/2021 12:00:00 AM EDT completed [facility] Vaccine Series Complete: YESThis Data wa s Submitted to [facility]. New in 2012. IIV4 02/20/2021 09:34:00 AM EDT completed [facility] ([facility] COVID-19 VACCINE Moderna 07/21/2020 12:00:00 AM EST completed [facility] Vaccine Series Complete: YESThis Data wa s Submitted to [facility]. Moderna Sars-(Covid-19) vaccine, mRNA, LNP-S, PF, 100 mcg/ 0.5 mL 07/20/2020 11:00:00 PM EST completed [facility] ([facility] COVID-19 VACCINE Moderna 06/23/2020 12:00:00 AM EST completed [facility] Vaccine Series Complete: NOThis Data was Submitted to [facility]. Moderna Sars-(Covid-19) vaccine, mRNA, LNP-S, PF, 100 mcg/ 0.5 mL 06/22/2020 11:00:00 PM EST completed [facility] ([facility] New in 2012. IIV4 02/20/2020 08:58:00 AM EDT completed [facility] ([facility] Medications Medication Brand Name Start Date Product Form Dose Route Admi nistrative Instructions Pharmacy Instructions Status Indications Reaction Description Data Source(s) 10 mg 03/05/2021 12:00:00 AM EDT tablet extended release 24 hr 30 TAKE ONE TABLET BY MOUTH EVERY DAY IMMEDIATELY AFTER THE SAME MEAL TAKE ONE TABLET BY MOUTH EVERY DAY IMMEDIATELY AFTER THE SAME MEAL SOLD: 03/05/2021 [facility] 24 HR Alfuzosin hydrochloride 10 MG Exte nded Release Oral Tablet Alfuzosin HCl ER 10 MG Alfuzosin HCl ER 10 MG 03/05/2021 12:00:00 AM EDT 1.0 {tablet_immediately_after_the_same_meal} active Alfuzosin HCl ER 10 MG eCW1 ([facility]) Sulfamethoxazole 800 MG / Trimethoprim 1 60 MG Oral Tablet [Bactrim] Bactrim DS 800-160 MG Bactrim DS 800-160 MG 01/27/2021 12:00:00 AM EDT 1.0 {table t} active Bactrim DS 800-160 MG eCW1 ( [facility]) Sulfamethoxazole 800 MG / Trimethoprim 1 60 MG Oral Tablet [Bactrim] Bactrim DS 800-160 MG Bactrim DS 800-160 MG 01/27/2021 12:00:00 AM EDT 1.0 {table t} active Bactrim DS 800-160 MG eCW1 ( [facility]) 800-160 mg 01/27/2021 12:00:00 AM EDT tablet 10 TAKE ONE TABLET BY MOUTH TWICE A DAY UNTIL GONE TAKE ONE TABLET BY MOUTH TWICE A DAY UNTIL GONE SOLD: 01/29/2021 [facility] Sulfamethoxazole 800 MG / Trimethoprim 1 60 MG Oral Tablet [Bactrim] Bactrim DS 800-160 MG Bactrim DS 800-160 MG 01/27/2021 12:00:00 AM EDT 1.0 {table t} suspended Bactrim DS 800-160 MG eCW1 ( [facility]) 800-160 mg 01/07/2021 12:00:00 AM EDT tablet 10 TAKE ONE TABLET BY MOUTH TWICE A DAY FOR 5 DAYS TAKE ONE TABLET BY MOUTH TWICE A DAY FOR 5 DAYS SOLD: 01/08/2021 [facility] Sulfamethoxazole 800 MG / Trimethoprim 1 60 MG Oral Tablet [Bactrim] Bactrim DS 800-160 MG Bactrim DS 800-160 MG 01/07/2021 12:00:00 AM EDT 1.0 {table t} active Bactrim DS 800-160 MG eCW1 ( [facility]) Sulfamethoxazole 800 MG / Trimethoprim 1 60 MG Oral Tablet [Bactrim] Bactrim DS 800-160 MG Bactrim DS 800-160 MG 01/07/2021 12:00:00 AM EDT 1.0 {table t} active Bactrim DS 800-160 MG eCW1 ( [facility]) Sulfamethoxazole 800 MG / Trimethoprim 1 60 MG Oral Tablet [Bactrim] Bactrim DS 800-160 MG Bactrim DS 800-160 MG 01/07/2021 12:00:00 AM EDT 1.0 {table t} active Bactrim DS 800-160 MG eCW1 ( [facility]) Sulfamethoxazole 800 MG / Trimethoprim 1 60 MG Oral Tablet [Bactrim] Bactrim DS 800-160 MG Bactrim DS 800-160 MG 01/07/2021 12:00:00 AM EDT 1.0 {table t} active Bactrim DS 800-160 MG eCW1 ( [facility]) Sulfamethoxazole 800 MG / Trimethoprim 1 60 MG Oral Tablet [Bactrim] Bactrim DS 800-160 MG Bactrim DS 800-160 MG 01/07/2021 12:00:00 AM EDT 1.0 {table t} active Bactrim DS 800-160 MG eCW1 ( [facility]) Sulfamethoxazole 800 MG / Trimethoprim 1 60 MG Oral Tablet [Bactrim] Bactrim DS 800-160 MG Bactrim DS 800-160 MG 01/07/2021 12:00:00 AM EDT 1.0 {table t} suspended Bactrim DS 800-160 MG eCW1 ( [facility]) Tamsulosin hydrochloride 0.4 MG Oral Capsule Tamsulosi n HCl 0.4 MG Tamsulosin HCl 0.4 MG 01/01/2021 12:00:00 AM EDT 1.0 {capsule} active Tamsulosin HCl 0.4 MG eCW1 ([facility]) Tamsulosin hydrochloride 0.4 MG Oral Capsule Tamsulosi n HCl 0.4 MG Tamsulosin HCl 0.4 MG 01/01/2021 12:00:00 AM EDT 1.0 {capsule} active Tamsulosin HCl 0.4 MG eCW1 ([facility]) Tamsulosin hydrochloride 0.4 MG Oral Capsule Tamsulosi n HCl 0.4 MG Tamsulosin HCl 0.4 MG 01/01/2021 12:00:00 AM EDT 1.0 {capsule} active Tamsulosin HCl 0.4 MG eCW1 ([facility]) Tamsulosin hydrochloride 0.4 MG Oral Capsule Tamsulosi n HCl 0.4 MG Tamsulosin HCl 0.4 MG 01/01/2021 12:00:00 AM EDT 1.0 {capsule} active Tamsulosin HCl 0.4 MG eCW1 ([facility]) Tamsulosin hydrochloride 0.4 MG Oral Capsule Tamsulosi n HCl 0.4 MG Tamsulosin HCl 0.4 MG 01/01/2021 12:00:00 AM EDT 1.0 {capsule} active Tamsulosin HCl 0.4 MG eCW1 ([facility]) Tamsulosin hydrochloride 0.4 MG Oral Capsule Tamsulosi n HCl 0.4 MG Tamsulosin HCl 0.4 MG 01/01/2021 12:00:00 AM EDT 1.0 {capsule} active Tamsulosin HCl 0.4 MG eCW1 ([facility]) 0.4 mg 01/01/2021 12:00:00 AM EDT capsule 30 TAKE ONE CAPSULE BY MOUTH EVERY DAY TAKE ONE CAPSULE BY MOUTH EVERY DAY SOLD: 01/01/2021 [facility] 0.4 mg 01/01/2021 12:00:00 AM EDT capsule 30 TAKE ONE CAPSULE BY MOUTH EVERY DAY TAKE ONE CAPSULE BY MOUTH EVERY DAY SOLD: 02/01/2021 [facility] No Active Medications 10/28/2020 12:00:00 AM EDT active [facility] ([facility]) NITROFURANTOIN, MACROCRYSTALS 25 MG / Ni trofurantoin, Monohydrate 75 MG Oral Capsule [Macrobid] Macrobid 10/21/2020 12:00:00 AM EDT ORAL completed [facility] ([facility]) No Active Medications 10/21/2020 12:00:00 AM EDT completed [facility] ([facility]) NITROFURANTOIN, MACROCRYSTALS 25 MG / Ni trofurantoin, Monohydrate 75 MG Oral Capsule 100 mg NITROFURANTOIN MONOHYD/M-CRYST 10/21/2020 12:00:00 AM EDT ca psule 14 TAKE ONE CAPSULE BY MOUTH TWICE A DAY WITH FOOD TAKE ONE CAPSULE BY MOUTH TWICE A DAY WITH FOOD SOLD: 10/21/2020 [facility] Insurance Providers Payer name Policy type / Coverage type Policy ID Covered republican ID Covered republican's relationship to cronin Policy Cronin Plan Information [id number] [employer] [place]/307 [id number] [place] [id number] [place]/307 [id number] [place] [id number] [place]/307 [id number] SP [id number] MEDICARE BLUE PPO 306 [id number] SP [id number] [place] P[place] 302/307 [id number] [place] [id number] MEDICARE BLUE PPO 306 [id number] SP [id number] [facility] Health Maintenance Organization (O) [id number] Self [id number] [facility] (HMO) [id number] [facility] Medicare Commercial [id number] Self [id number] MEDICARE BLUE PPO 306 [id number] SP [id number] [facility] Health Maintenance Organization (O) [id number] Self [id number] [facility] Medicare Commercial [id number] Self [id number] BS Medicare Commercial [id number] Self [id number] MEDICARE BLUE PPO 306 [id number] SP [id number] BS Medicare Commercial [id number] Self [facility] Health Maintenance Organization (HMO) [id number] Self Problems, Conditions, and Diagnoses Code Display Name Description Problem Type Effective Dates Data Source(s) N40.0 [id number] Benign prostatic hyp erplasia, unspecified whether lower urinary tract symptoms present Problem 03/05/2021 12:00:00 AM EDT eCW1 ([facility]) N40.1 [id number] Benign prostatic hyperplasia wit h lower urinary tract symptoms Problem 01/01/2021 12:00:00 AM EDT eCW1 ([facility]) Surgeries/Procedures Procedure Description Date Indications Data Source(s) OFFICE OUTPATIENT VISIT 15 MINUTES 02/20/2021 12:00:00 AM EDT [facility] ([facility] OFFICE OUTPATIENT VISIT 15 MINUTES 02/05/2021 12:00:00 AM EDT [facility] ([facility] Med: Lidocaine Jelly 2% 6ml Intravesically (Glydo) 01/01/2021 12:00:00 AM EDT eCW1 ([facility]) uro PVR (Post Voiding Residual) Bladder Scan 12:00:00 AM EDT eCW1 ([facility]) Results ID Date Data Source [id number] 03/22/2021 10:15:00 AM EDT [facility] Name Value Range Interpretation Code Description Data Marta rce(s) Supporting Document(s) SARS-CoV-2 (COVID-19) RNA [Presence] in Respiratory specimen by ALONDRA with probe detection Not Detected [facility] This lab was ordered by [facility] and reported by [employer] ID Date Data Source [id number] 02/11/2021 02:20:00 PM EDT [facility] ([facility] Name Value Range Interpretation Code Description Data Marta rce(s) Supporting Document(s) Prostate specific Ag [Mass/volume] in Serum or Plasma 4.91 ng/mL [facility] ([facility] The PSA assay is performed on the CLIPPATE analyzer by [employer] sandwich chemiluminescent immunoassay and should not be compared interchangeably with other methods. It should not be used alone as a screening test or diagnosis for the presence or absence of malignant disease. Predictions of disease recurrence should not be based solely on values obtained from serial patient serum values. ID Date Data Source [id number] 02/11/2021 02:20:00 PM EDT [facility] ([facility] Name Value Range Interpretation Code Description Data Marta rce(s) Supporting Document(s) PH,Urine 6.0 units 5.0-9.0 [facility] ([facility] Color, Urine Laboratory test result [facility] ([facility] Appearance, Urine Laboratory test result [facility] ([facility] Glucose, Urine (Ua) Auto Laboratory test result [facility] ([facility] Specific [place] Urine Auto 1.006 1.002-1.035 [facility] ([facility] Protein, Urine Auto Laboratory test result [facility] ([facility] Urobilinogen, Urine Auto 0.2 mg/dL 0.0-2.0 [facility] ([facility] Bilirubin, Urine Auto Laboratory test result [facility] ([facility] Ketone, Urine Auto Laboratory test result [facility] ([facility] Blood, Urine Blood Laboratory test result [facility] ([facility] Leukocyte Esterase, Urine Auto Laboratory test result [facility] ([facility] Nitrite, Urine Auto Laboratory test result [facility] ([facility] WBC, Urine Auto 0 /HPF 0-3 [facility] ([facility] Bacteria, Urine Auto Laboratory test result [facility] ([facility] RBC, Urine Auto 2 /HPF 0-3 [facility] ([facility] Hyaline Cast, Urine Auto 0 /LPF 0-1 MEDEN T ([facility] Squamous Epithelial Cell Ur AU 0 /HPF 0-6 [facility] ([facility] ID Date Data Source [id number] 02/11/2021 02:20:00 PM EDT [facility] ([facility] Name Value Range Interpretation Code Description Data Marta rce(s) Supporting Document(s) HDL Cholesterol 40 mg/dL [facility] ([facility] Cholesterol Level 149 mg/dL [facility] ([facility] Triglycerides Level 108 mg/dL [facility] ([facility] LDL Cholesterol 87 mg/dL [facility] ([facility] Cholesterol Risk Ratio 3.725 [facility] ([facility] Non-HDL-C 109 mg/dL [facility] ([facility] ID Date Data Source [id number] 02/11/2021 02:20:00 PM EDT [facility] ([facility] Name Value Range Interpretation Code Description Data Marta rce(s) Supporting Document(s) Glucose, Fasting 100 mg/dL 70-100 [facility] ([facility] Blood Urea Nitrogen 15 mg/dL 7-18 [facility] ([facility] Creatinine For GFR 0.95 mg/dL 0.70-1.30 [facility] ([facility] Glomerular Filtration Rate Laboratory test result [facility] ([facility] <content>Units are mL/min/1.73 m2</content>
<content></content>
<content>Chronic Kidney Disease Staging per NKF:</content>
<content></content>
<content>Stage I & II GFR >=60 Normal to Mildly Decreased</content>
<content>Stage III GFR 30- 59 Moderately Decreased</content>
<content>Stage IV GFR 15-29 Severely Decreased</content>
<content>Stage V GFR <15 Very Little GFR Left</content>
<content>ESRD GFR <15 on [employer]</content>
<content></content> Potassium Serum 4.6 meq/L 3.5-5.1 [facility] ([facility] Sodium Level 138 meq/L 136-145 [facility] ([facility] Chloride Level 103 meq/L 98-107 [facility] ([facility] Anion Gap 2 meq/L 8-16 [facility] Calcium Level 8.8 mg/dL 8.8-10.2 [facility] ([facility] Carbon Dioxide Level 33 meq/L 21-32 [facility] ([facility] Ast/Sgot 16 U/L 7-37 [facility] ([facility] Alt/SGPT 26 U/L 12-78 [facility] ([facility] Bilirubin,Total 0.5 mg/dL 0.2-1.0 [facility] ([facility] Total Protein 6.4 GM/DL 6.4-8.2 [facility] ([facility] Alkaline Phosphatase 57 U/L 45-117 [facility] ([facility] Albumin 3.2 GM/DL 3.2-5.2 [facility] ([facility] Albumin/Globulin Ratio 1.0 [facility] ([facility] ID Date Data Source URINE CULTURE 01/01/2021 12:00:00 AM EDT eCW1 ([facility]ly [facility]) Name Value Range Interpretation Code Description Data Marta rce(s) Supporting Document(s) URINE CULTURE eCW1 ([facility]) ID Date Data Source UA URINALYSIS 01/01/2021 12:00:00 AM EDT eCW1 ([facility]ly [facility]) Name Value Range Interpretation Code Description Data Marta rce(s) Supporting Document(s) UA URINALYSIS eCW1 ([facility]) ID Date Data Source NON RETAIL ZONE SPECIALIST CYTOLOGY REQ FOR SERVI 11/14/2020 12:00:00 AM EDT eC W1 ([facility]) Name Value Range Interpretation Code Description Data Marta rce(s) Supporting Document(s) URINE eCW1 ([facility]ly [facility]) ID Date Data Source [id number] 11/03/2020 09:59:00 AM EDT [facility] ([facility] Name Value Range Interpretation Code Description Data Marta rce(s) Supporting Document(s) Glucose, Fasting 89 mg/dL 70-100 [facility] ([facility] Blood Urea Nitrogen 12 mg/dL 7-18 [facility] ([facility] Creatinine For GFR 0.77 mg/dL 0.70-1.30 [facility] ([facility] Glomerular Filtration Rate Laboratory test result [facility] ([facility] <content>Units are mL/min/1.73 m2</content>
<content></content>
<content>Chronic Kidney Disease Staging per NKF:</content>
<content></content>
<content>Stage I & II GFR >=60 Normal to Mildly Decreased</content>
<content>Stage III GFR 30- 59 Moderately Decreased</content>
<content>Stage IV GFR 15-29 Severely Decreased</content>
<content>Stage V GFR <15 Very Little GFR Left</content>
<content>ESRD GFR <15 on [employer]</content>
<content></content> Sodium Level 141 meq/L 136-145 [facility] ([facility] Chloride Level 107 meq/L 98-107 [facility] ([facility] Potassium Serum 4.3 meq/L 3.5-5.1 [facility] ([facility] Carbon Dioxide Level 30 meq/L 21-32 [facility] ([facility] Calcium Level 8.7 mg/dL 8.8-10.2 [facility] ([facility] Anion Gap 4 meq/L 8-16 [facility] ([facility] Alt/SGPT 33 U/L 12-78 [facility] ([facility] Ast/Sgot 15 U/L 7-37 [facility] ([facility] Alkaline Phosphatase 68 U/L 45-117 [facility] ([facility] Bilirubin,Total 0.4 mg/dL 0.2-1.0 [facility] ([facility] Albumin/Globulin Ratio 0.9 [facility] ([facility] Albumin 3.2 GM/DL 3.2-5.2 [facility] ([facility] Total Protein 6.9 GM/DL 6.4-8.2 [facility] ([facility] ID Date Data Source [id number] 11/03/2020 09:59:00 AM EDT [facility] ([facility] Name Value Range Interpretation Code Description Data Marta rce(s) Supporting Document(s) Prothrombin Time 14.0 s 12.5-14.3 [facility] ([facility] Partial Thromboplastin Time 25.8 s 24.2-38.5 [facility] ([facility] Inr 1.06 [facility] ([facility] THERAPUTIC HUMAN INR VALUES INDICATIONS NORMAL RANGES PROPHYLAXIS/TREATMENT OF: VENOUS THROMBOSIS 2.0-3.0 PULMONARY EMBOLISM 2.0-3.0 PREVENTION OF SYSTEMIC EMBOLISM FROM: TISSUE HEART VALVES 2.0-3.0 ACUTE MYOCARDIAL INFARCTION 2.0-3.0 VALVULAR HEART DISEASE 2.0-3.0 ATRIAL FIBRILLATION 2.0-3.0 MECHANICAL VALVES(HIGH RISK) 2.5-3.5 RECURRENT MYOCARDIAL INFARCTION 2.5-3.5 ID Date Data Source [id number] 11/03/2020 09:59:00 AM EDT [facility] ([facility] Name Value Range Interpretation Code Description Data Marta rce(s) Supporting Document(s) White Blood Count 15.7 10 4.0-10.0 [facility] ([facility] Red Blood Count 4.96 10 4.30-6.10 [facility] ([facility] Hematocrit 47.3 % 42.0-52.0 [facility] ([facility] Hemoglobin 15.5 g/dL 13.5-17.5 [facility] ([facility] Mean Corpuscular HGB Conc 32.8 g/dL 32.0-36.5 [facility] ([facility] Mean Corpuscular Volume 95.4 fl 80.0-96.0 M EDENT ([facility] Mean Corpuscular Hemoglobin 31.3 pg 27.0-33.0 [facility] ([facility] Platelet Count, Automated 347 10 150-450 [facility] ([facility] Red Cell Distribution Width 12.3 % 11.5-14.5 [facility] ([facility] Neutrophils % 81.6 % 36.0-66.0 [facility] ([facility] [place] % 4.8 % 2.0-8.0 [facility] ([facility] Lymph % 12.1 % 24.0-44.0 [facility] ([facility] Baso % 0.4 % 0.0-1.0 [facility] ([facility] Eos % 0.5 % 0.0-3.0 [facility] ([facility] Nucleated Red Blood Cell % 0.0 % 0-0 MED [facility] ([facility] Immature Granulocyte % 0.6 % 0-3.0 [facility] ([facility] Neutrophils # 12.8 10 1.5-8.5 [facility] ([facility] [place] # 0.8 10 0.0-0.8 [facility] ([facility] Lymph # 1.9 10 1.5-5.0 [facility] ([facility] Baso # 0.1 10 0.0-0.2 [facility] ([facility] Eos # 0.1 10 0.0-0.5 [facility] ([facility] ID Date Data Source [id number] 11/03/2020 07:49:00 AM EDT [facility] ([facility] Name Value Range Interpretation Code Description Data Marta rce(s) Supporting Document(s) Reflex Urine Culture Laboratory test result [facility] ([facility] FULL REPORT IN LAB NOTES (eCW and [facility] ). NO GROWTH CLINICAL SIGNIFICANCE 1 ORGANISM ID Date Data Source [id number] 11/03/2020 07:49:00 AM EDT [facility] ([facility] Name Value Range Interpretation Code Description Data Marta rce(s) Supporting Document(s) Color, Urine RFX Laboratory test result [facility] ([facility] Appearance, Urine RFX Laboratory test result [facility] ([facility] PH,Urine RFX 6.0 units 5.0-9.0 [facility] ([facility] Specific [place] Ur Auto RFX 1.023 1.002-1.035 [facility] ([facility] Protein, Urine Auto RFX Laboratory test result [facility] ([facility] Ketone, Urine Auto RFX Laboratory test result [facility] ([facility] Glucose, Urine (Ua) Auto RFX Laboratory test result [facility] ([facility] Urobilinogen, Urine Auto RFX 0.2 mg/dL 0.0-2.0 [facility] ([facility] Bilirubin, Urine Auto RFX Laboratory test result [facility] ([facility] Nitrite, Urine Auto RFX Laboratory test result [facility] ([facility] Leukocyte Esterase Ur Auto RFX Laboratory test result [facility] ([facility] Blood, Urine Blood RFX Laboratory test result [facility] ([facility] WBC, Urine Auto RFX Laboratory test result 0-3 [facility] ([facility] RBC, Urine Auto RFX Laboratory test result 0-3 [facility] ([facility] Squam Epithelial Cell Ur Aurfx 0 /HPF 0-6 [facility] ([facility] Laboratory test finding (navigational concept) 2 /HPF [facility] ([facility] Bacteria, Urine Auto RFX Laboratory test result [facility] ([facility] Mucus, Urine RFX Laboratory test result [facility] ([facility] Hyaline Cast, Urine Auto RFX 0 /LPF 0-1 [facility] ([facility] ID Date Data Source [id number] 10/28/2020 12:21:00 PM EDT MED[facility] ([facility]) Name Value Range Interpretation Code Description Data Marta rce(s) Supporting Document(s) Bacteria identified in Urine by Culture Laboratory test result [facility] ([facility], [facility]) No Rx ID Date Data Source [id number] 10/21/2020 03:51:00 PM EDT [facility] ([facility]) Name Value Range Interpretation Code Description Data Marta rce(s) Supporting Document(s) Bacteria identified in Urine by Culture Laboratory test result [facility] ([facility]) <content> </content>
<content>* This is a corrected result. *</content>
<content></content>
<content> A prior result that was reported as final has been changed.</content>
<content></content>
<content>FULL REPORT IN LAB NOTES (eCW and [facility]).</content>
<content></content>
<content>ORGANISM 1: ESCHERICHIA COLI</content>
<content></content>
<content>COLONY COUNT >100,000</content>
<content></content>
<content></content>
<content> </content>
<content>ORGANISM 1: ESCHERICHIA COLI</content>
<content></content>
<content>ESCHERICHIA COLI: REACTION</content>
<content> TRIMETHOPRIM/SULFAMETHOXAZOLE IV 160mg TMP & 800mg SMXq6h <=20 S</content>
<content>TRIMETHOPRIM/SULFAMETHOXAZOLE PO Bactrim DS Bid <=20 S</content>
<content>AMPICILLIN IV 500mg q6h <=2 S</content>
<content>AMPICILLIN PO 500mg q6h fasting <=2 S</content>
<content>GENTAMICIN IV 80mg q8h <=1 S</content>
<content>CEFAZOLIN IV 1gm q8h <=4 S</content>
<content>LEVOFLOXACIN IV 500mg qd <=0.12 S</content>
<content>LEVOFLOXACIN PO 250mg qd <=0.12 S</content>
<content>LEVOFLOXACIN PO 500mg qd <=0.12 S</content>
<content>TOBRAMYCIN IV 80mg q8h <=1 S</content>
<content> CEFTRIAXONE IV 1gm q24h <=1 S</content>
<content>CEFTAZIDIME IV 1gm q8h <=1 S</content>
<content>AMPICILLIN/SULBACTAM IV 1.5g q6h <=2 S</content>
<content>PIPERACILLIN/TAZOBACTAM IV 2.25 gm q6h <=4 S</content>
<content>AZTREONAM IV 1gm q8h <=1 S</content>
<content>ERTAPENEM IV 1gm qd <=0.5 S</content>
<content> MEROPENEM IV 1 gm q8h <=0.25 S</content>
<content>MEROPENEM IV 500 mg q8h <=0.25 S</content>
<content>TIGECYCLINE IV 50mg q12h <=0.5 S</content>
<content>CEFEPIME IV 1 gm q12h <=1 S</content>
<content>CEFEPIME IV 2 gm q12h <=1 S</content>
<content>EXTD BRD SPCTRM BETA LACTAMASE IV NEGATIVE FOR ESBL</content>
<content></content>
<content>ESCHERICHIA COLI: REACTION</content>
<content>NITROFURANTOIN PO 100mg BID 21 S</content>
<content></content> ID Date Data Source [id number] 02/13/2020 08:43:00 AM EDT [facility] ([facility] Name Value Range Interpretation Code Description Data Marta rce(s) Supporting Document(s) Calcidiol [Mass/volume] in Serum or Plasma 56.2 ng/mL 30.0-100.0 [facility] ([facility] Vitamin D deficiency has been defined by the [place] of Medicine and an Endocrine Society practice guideline as a level of serum 25-OH vitamin D less than 20 ng/mL (1,2). The Endocrine Society went on to further define vitamin D insufficiency as a level between 21 and 29 ng/mL (2). 1. IOM ([place] of [employer]). 2010. Di etary reference intakes for calcium and D. [place]: The National Academies Press. 2. Juan A GOODSON, Laith MAZA, Hema mobley SIDDIQUI, et al. Evaluation, treatment, and prevention of vitamin D deficiency: an Endocrine Society clinical practice guideline. JCEM. 2010; 96(7):1911-30. ID Date Data Source [id number] 02/13/2020 08:43:00 AM EDT [facility] ([facility] Name Value Range Interpretation Code Description Data Marta rce(s) Supporting Document(s) Cholesterol [Mass/volume] in Serum or Plasma 183 mg/dL 100-199 [facility] ([facility] Triglyceride [Mass/volume] in Serum or Plasma 107 mg/dL 0-149 [facility] ([facility] Laboratory test finding (navigational concept) 20 mg/dL 5-40 [facility] ([facility] Cholesterol in HDL [Mass/volume] in Serum or Plasma 36 mg/dL [facility] ([facility] Laboratory test finding (navigational concept) 127 mg/dL 0-99 [facility] ([facility] Comment: Laboratory test result [facility] ([facility] ID Date Data Source [id number] 02/13/2020 08:43:00 AM EDT [facility] ([facility] Name Value Range Interpretation Code Description Data Marta rce(s) Supporting Document(s) Glucose [Mass/volume] in Serum or Plasma 91 mg/dL 65-99 [facility] ([facility] Urea nitrogen [Mass/volume] in Serum or Plasma 14 mg/dL 8-27 [facility] ([facility] Sodium [Moles/volume] in Serum or Plasma 142 mmol/L 134-144 [facility] ([facility] Potassium [Moles/volume] in Serum or Plasma 4.5 mmol/L 3.5-5.2 [facility] ([facility] Chloride [Moles/volume] in Serum or Plasma 104 mmol/L 96-106 [facility] ([facility] Albumin [Mass/volume] in Serum or Plasma 4.1 g/dL 3.8-4.8 [facility] ([facility] Calcium [Mass/volume] in Serum or Plasma 9.2 mg/dL 8.6-10.2 [facility] ([facility] Protein, Total 6.1 g/dL 6.0-8.5 [facility] ([facility] Carbon dioxide, total [Moles/volume] in Serum or Plasma 26 mmol/L 20 -29 [facility] ([facility] Albumin/Globulin [Mass Ratio] in Serum or Plasma 2.1 1.2-2.2 [facility] ([facility] Bilirubin.total [Mass/volume] in Serum or Plasma 0.5 mg/dL 0.0-1.2 [facility] ([facility] Globulin [Mass/volume] in Serum by calculation 2.0 g/dL 1.5-4.5 [facility] ([facility] Aspartate aminotransferase [Enzymatic activity/volume] in Serum or Plasma 17 IU/L 0-40 [facility] ([facility] Creatinine [Mass/volume] in Serum or Plasma 0.97 mg/dL 0.76-1.27 [facility] ([facility] Alanine aminotransferase [Enzymatic activity/volume] in Seru m or Plasma 20 IU/L 0-44 [facility] ([facility] eGFR If NonAfricn Am 79 mL/min/1.73 [facility] ([facility] Urea nitrogen/Creatinine [Mass Ratio] in Serum or Plasma 14 1 0-24 [facility] ([facility] eGFR If Africn Am 91 mL/min/1.73 [facility] ([facility] Alkaline phosphatase [Enzymatic activity/volume] in Serum or Plasma 59 IU/L 39-117 [facility] ([facility] ID Date Data Source [id number] 02/14/2020 06:06:00 AM EDT [facility] Name Value Range Interpretation Code Description Data Marta rce(s) Supporting Document(s) Glucose 91 mg/dL 65-99 [facility] BUN 14 mg/dL 8-27 [facility] Creatinine 0.97 mg/dL 0.76-1.27 [facility] eGFR If NonAfricn Am 79 mL/min/1.73 >59 [facility] eGFR If Africn Am 91 mL/min/1.73 >59 [facility] BUN/Creatinine Ratio 14 10-24 [facility] Sodium 142 mmol/L 134-144 [facility] Potassium 4.5 mmol/L 3.5-5.2 [facility] Chloride 104 mmol/L 96-106 [facility] Carbon Dioxide, Total 26 mmol/L 20-29 [facility] Calcium 9.2 mg/dL 8.6-10.2 [facility] Protein, Total 6.1 g/dL 6.0-8.5 [facility] Albumin 4.1 g/dL 3.8-4.8 [facility] Globulin, Total 2.0 g/dL 1.5-4.5 [facility] A/G Ratio 2.1 1.2-2.2 [facility] Bilirubin, Total 0.5 mg/dL 0.0-1.2 [facility] Alkaline Phosphatase 59 IU/L 39-117 [facility] AST (SGOT) 17 IU/L 0-40 [facility] ALT (SGPT) 20 IU/L 0-44 [facility] ID Date Data Source [id number] 02/14/2020 08:08:00 AM EDT [facility] Name Value Range Interpretation Code Description Data Marta rce(s) Supporting Document(s) Vitamin D, 25-Hydroxy 56.2 ng/mL 30.0-100.0 [facility] Vitamin D deficiency has been defined by the [place] of[employer] and an Endocrine Society practice guideline as alevel of serum 25-OH vitamin D less than 20 ng/mL (1,2).The Endocrine Society went on to further define vitamin Dinsufficiency as a level between 21 and 29 ng/mL (2).1. IOM ([place] of [employer]). 2010. Dietary reference intakes for calcium and D. [place]: The National Academies Press.2. Juan A MF, Laith MAZA, Jennifer SIDDIQUI, et al. Evaluation, treatment, and prevention of vitamin D deficiency: an Endocrine Society clinical practice guideline. JCEM. 2010; 96(7):1911-30. ID Date Data Source [id number] 02/14/2020 06:06:00 AM EDT [facility] Name Value Range Interpretation Code Description Data Marta rce(s) Supporting Document(s) Cholesterol, Total 183 mg/dL 100-199 [facility] Triglycerides 107 mg/dL 0-149 [facility] HDL Cholesterol 36 mg/dL >39 Below low normal [facility] VLDL Cholesterol Ulisses 20 mg/dL 5-40 [facility] LDL Chol Calc (NIH) 127 mg/dL 0-99 Above high normal [facility] Procedure Social History Code Duration Value Status Description Data Source(s ) Smoking 03/16/2021 12:00:00 AM EDT Never Smoker completed Never S moker eCW1 ([facility]) Smoking 01/01/2021 12:00:00 AM EDT Never Smoker completed Never S moker eCW1 ([facility]) Smoking 01/01/2021 12:00:00 AM EDT Never Smoker completed Never S moker eCW1 ([facility]) Smoking 01/01/2021 12:00:00 AM EDT Never Smoker completed Never S moker eCW1 ([facility]) Smoking 01/01/2021 12:00:00 AM EDT Never Smoker completed Never S moker eCW1 ([facility]) Smoking 01/01/2021 12:00:00 AM EDT Never Smoker completed Never S moker eCW1 ([facility]) Smoking 11/14/2020 12:00:00 AM EDT Never Smoker completed Never S moker eCW1 ([facility]) Smoking 11/14/2020 12:00:00 AM EDT Never Smoker completed Never S moker eCW1 ([facility]) Vital Signs ID Date Data Source [id number] Name Value Range Interpretation Code Description Data Source(s) Body height 72 [in_i] 72 [in_i] eCW1 ([facility]) Body weight 166 [lb_av] 166 [lb_av] eCW1 ([facility]) Body weight 75.3 kg 75.3 kg eCW1 ([facility]) Body mass index (BMI) [Ratio] 22.51 kg/m2 22.51 kg/m2 eCW1 ([facility]) Heart rate 70 /min 70 /min eCW1 ([facility]) Respiratory rate 19 /min 19 /min eCW1 ([facility]) Body temperature 97.2 [degF] 97.2 [degF] eCW1 ( [facility]) Systolic blood pressure 116 mm[Hg] 116 mm[Hg] e CW1 ([facility]) Diastolic blood pressure 64 mm[Hg] 64 mm[Hg] eCW1 ([facility]) Oxygen saturation in Arterial blood by Pulse oximetry 98 % 98 % [facility] ([facility] Vickery body weight 172 [lb_av] 172 [lb_av] MEDEN T ([facility] Body mass index (BMI) [Ratio] 23.9 kg/m2 23.9 k g/m2 [facility] ([facility] Body weight 171.25 [lb_av] 171.25 [lb_av] MEDEN T ([facility] Systolic blood pressure 121 mm[Hg] 121 mm[Hg] M EDENT ([facility] Diastolic blood pressure 59 mm[Hg] 59 mm[Hg] [facility] ([facility] Heart rate 68 /min 68 /min [facility] ([facility] Body temperature 97.0 [degF] 97.0 [degF] [facility] ([facility] Respiratory rate 16 /min 16 /min [facility] Body height 71 [in_i] 71 [in_i] [facility] 5'11" Systolic blood pressure 132 mm[Hg] 132 mm[Hg] M EDENT ([facility]) Diastolic blood pressure 68 mm[Hg] 68 mm[Hg] [facility] ([facility]) Body temperature 98.4 [degF] 98.4 [degF] [facility] ([facility]) Body height 72 [in_i] 72 [in_i] [facility] ([facility]) 6'0" Body weight 171.00 [lb_av] 171.00 [lb_av] [facility] ([facility]) Body mass index (BMI) [Ratio] 23.2 kg/m2 23.2 k g/m2 [facility] ([facility]) Vickery body weight 178 [lb_av] 178 [lb_av] [facility] ([facility]) Body weight 77.566 kg 77.566 kg [facility] ([facility]) Body surface area Derived from formula 1.99 m2 1.99 m2 [facility] ([facility]) Body weight 166 [lb_av] 166 [lb_av] eCW1 ([facility]) Body weight 75.3 kg 75.3 kg W1 ([facility]) Body height 72 [in_i] 72 [in_i] eCW1 ([facility]) Body mass index (BMI) [Ratio] 22.51 kg/m2 22.51 kg/m2 W1 ([facility]) Heart rate 67 /min 67 /min eCW1 ([facility]) Respiratory rate 18 /min 18 /min eCW1 ([facility]) Body temperature 97.6 [degF] 97.6 [degF] eCW1 ( [facility]) Systolic blood pressure 140 mm[Hg] 140 mm[Hg] e CW1 ([facility]) Diastolic blood pressure 80 mm[Hg] 80 mm[Hg] eCW1 ([facility]) Body weight 166 [lb_av] 166 [lb_av] eCW1 ([facility]) Body height 72 [in_i] 72 [in_i] eCW1 ([facility]) Body mass index (BMI) [Ratio] 22.51 kg/m2 22.51 kg/m2 eCW1 ([facility]) Heart rate 66 /min 66 /min eCW1 ([facility]) Respiratory rate 18 /min 18 /min eCW1 ([facility]) Body temperature 97.7 [degF] 97.7 [degF] eCW1 ( [facility]) Systolic blood pressure 140 mm[Hg] 140 mm[Hg] e CW1 ([facility]) Diastolic blood pressure 88 mm[Hg] 88 mm[Hg] eCW1 ([facility]) Oxygen saturation in Arterial blood by Pulse oximetry 98 % 98 % MED[facility] ([facility], [facility]) Body temperature 98.6 [degF] 98.6 [degF] MED[facility] ([facility], [facility]) Body weight 160.00 [lb_av] 160.00 [lb_av] MEDEN T ([facility], [facility]) Body height 72 [in_i] 72 [in_i] MED[facility] ([facility], [facility]) 6'0" Body mass index (BMI) [Ratio] 21.7 kg/m2 21.7 k g/m2 MED[facility] ([facility], [facility]) Heart rate 65 /min 65 /min [facility] ([facility], [facility]) Respiratory rate 14 /min 14 /min MED[facility] ( [place] [facility], [facility]) Systolic blood pressure 144 mm[Hg] 144 mm[Hg] M EDENT ([place] [facility], [facility]) Diastolic blood pressure 77 mm[Hg] 77 mm[Hg] MED[facility] ([facility], [facility]) Oxygen saturation in Arterial blood by Pulse oximetry 97 % 97 % MED[facility] ([facility], [facility]) Body temperature 99.5 [degF] 99.5 [degF] MED[facility] ([facility]) Body weight 165.00 [lb_av] 165.00 [lb_av] MEDEN T ([facility]) Body height 72 [in_i] 72 [in_i] MED[facility] ([facility]) 6'0" Systolic blood pressure 129 mm[Hg] 129 mm[Hg] M EDENT ([facility]) Diastolic blood pressure 77 mm[Hg] 77 mm[Hg] [facility] ([facility]) Heart rate 81 /min 81 /min MED[facility] ([facility]) Respiratory rate 22 /min 22 /min [facility] ( [facility]) Body mass index (BMI) [Ratio] 22.4 kg/m2 22.4 k g/m2 [facility] Systolic blood pressure 126 mm[Hg] 126 mm[Hg] M EDENT ([facility] Diastolic blood pressure 62 mm[Hg] 62 mm[Hg] [facility] ([facility] Respiratory rate 15 /min 15 /min [facility] ( [facility] Body temperature 97.6 [degF] 97.6 [degF] [facility] ([facility] Body height 71 [in_i] 71 [in_i] [facility] ([facility] 5'11" Oxygen saturation in Arterial blood by Pulse oximetry 98 % 98 % [facility] ([facility] Body weight 168.12 [lb_av] 168.12 [lb_av] MEDEN T ([facility] Vickery body weight 172 [lb_av] 172 [lb_av] MED[facility] T ([facility] Body mass index (BMI) [Ratio] 23.4 kg/m2 23.4 k g/m2 [facility] ([facility] Heart rate 67 /min 67 /min [facility] ([facility] Patient Treatment Plan of Care Planned Activity Planned Date Details Description Data Source (s) 24 HR Alfuzosin hydrochloride 10 MG Extended Release O ral Tablet 03/05/2021 12:00:00 AM EDT eCW1 (Formerly [facility]) Sulfamethoxazole 800 MG / Trimethoprim 160 MG Oral Tab let [Bactrim] 01/27/2021 12:00:00 AM EDT eCW1 (Formerly [facility]) Sulfamethoxazole 800 MG / Trimethoprim 160 MG Oral Tab let [Bactrim] 01/27/2021 12:00:00 AM EDT eCW1 (Formerly [facility]) Sulfamethoxazole 800 MG / Trimethoprim 160 MG Oral Tab let [Bactrim] 01/07/2021 12:00:00 AM EDT eCW1 (Formerly [facility]) Sulfamethoxazole 800 MG / Trimethoprim 160 MG Oral Tab let [Bactrim] 01/07/2021 12:00:00 AM EDT eCW1 (Formerly [facility]) Sulfamethoxazole 800 MG / Trimethoprim 160 MG Oral Tab let [Bactrim] 01/07/2021 12:00:00 AM EDT eCW1 (Formerly [facility]) Sulfamethoxazole 800 MG / Trimethoprim 160 MG Oral Tab let [Bactrim] 01/07/2021 12:00:00 AM EDT eCW1 (Formerly [facility]) Sulfamethoxazole 800 MG / Trimethoprim 160 MG Oral Tab let [Bactrim] 01/07/2021 12:00:00 AM EDT eCW1 (Formerly [facility]) Tamsulosin hydrochloride 0.4 MG Oral Capsule 01/01/2021 12:00:00 AM EDT eCW1 ([facility]) Tamsulosin hydrochloride 0.4 MG Oral Capsule 01/01/2021 12:00:00 AM EDT eCW1 ([facility]) Tamsulosin hydrochloride 0.4 MG Oral Capsule 01/01/2021 12:00:00 AM EDT eCW1 ([facility]) Tamsulosin hydrochloride 0.4 MG Oral Capsule 01/01/2021 12:00:00 AM EDT eCW1 ([facility]) Tamsulosin hydrochloride 0.4 MG Oral Capsule 01/01/2021 12:00:00 AM EDT eCW1 ([facility])
--- OUTSIDE RECORDS SUMMARY | 2021-03-27 09:00 | CCD ---
Author Author [facility] Organization [facility] Address Unknown Phone Unavailable Care Team Providers Care Custodial Engineer Name Role Phone Johnnyjonatan Tony Unavailable PROBLEMS Type Condition ICD9-CM Code [id number] Code Onset Dates Condition S tatus W/U Status Risk SNOMED Code Notes Problem Benign prostatic hyperplasia with lower urinary tract symptoms N40.1 Active confirmed [id number] ALLERGIES No Known Allergies ENCOUNTERS from 1950 to 2021-01-08 Encounter Location Date Provider Diagnosis [facility] Urology [address] [phone] [place] [address] Dec, Tony Handley IMMUNIZATIONS No Information SOCIAL HISTORY Tobacco Use: Social History Observation Description Date Details (start date - stop date) Never Smoker Sex Assigned At : Social History Observation Description Sex Assigned At Unknown Alcohol Screening: Question Answer Notes Did you have a drink containing alcohol in the past year? Ye s Points 3 Interpretation Negative How many drinks did you have on a typica l day when you were drinking in the past year? 1 or 2 (0 points) How often did you have a drink containing alcohol in t he past year? Two to three times per week (3 points) Tobacco Use: Question Answer Notes Are you a: never smoker REASON FOR REFERRAL No Information VITAL SIGNS No information MEDICATIONS Medication SIG (Take, Route, Frequency, Duration) Notes Start Da te End Date Status Bactrim DS 800-160 MG 1 tablet Orally Twice a day for 5 days Dec, Active Vitamin D 50 MCG (1999 UT) 1 capsule Orally Once a day for 30 day(s) Active Multi Complete - as directed Orally Active [place] 3 120-180 MG 1 capsule Orally Once a day for 30 day(s) Active Viagra 50 MG 1 tablet as needed Orally Once a day for 30 day(s) Active Tamsulosin HCl 0.4 MG 1 capsule Orally Once a day for 30 day(s) Dec, Active PROCEDURES No Information RESULTS No Results REASON FOR VISIT Lab results for urine sample MEDICAL (GENERAL) HISTORY Type Description Date Medical History Erectile dysfunction Surgical History L KNEE REPAIR Surgical History COLONOSCOPY X4 Surgical History HEMORRHOID SURGERY Surgical History Cystoscopy 20 years ago Surgical History CYSTOSCOPY 01/04 Goals Section No Information Health Concerns No Information MEDICAL EQUIPMENT No Information MENTAL STATUS No Information FUNCTIONAL STATUS No Information ASSESSMENTS No Information PLAN OF TREATMENT Medication Medication Name Sig Start Date Stop Date Tamsulosin HCl 0.4 MG 1 capsule Orally Once a day for 30 day(s) Dec, Bactrim DS 800-160 MG 1 tablet Orally Twice a day for 5 days Dec, Next Appt Details Provider Name:Tony Handley, 2020-10-2 0 08:30:00 AM, [address], , [place], [address], Insurance Providers Payer Name Payer Address Payer Phone Insured Name Patient Relati onship to Insured Coverage Start Date Coverage End Date MEDICARE BLUE PPO [address] [facility] BLUE [address] [address] [place] self
--- OUTSIDE RECORDS SUMMARY | 2021-03-27 09:00 | CCD | Continuity of Care Document ---
Author Author Vasyl [facility] Organization Unknown Address [address] [place] [address] Phone [phone] Care Team Providers Care Network Engineer Administrator Name Role Phone [facility] - Otolaryngology AUTM [phone] Problems Active Problems Provider Date Allergic rhinitis [...] Provide r Date Vitamin D (Ergocalciferol) 1.25mg (68647 Ut) Capsules take 1 capsule by mouth once weekly 12caps Clau Quispe FNP 11/28/2019 Sildenafil Citrate 100mg Tablets 1/2-1 tab by mouth at least 30 minutes prior to intercourse 30tabs Clau Stafford FNP 01/31/2019 Multivitamin Adults 50+ Adlt 50+ T ablets daily Unknown Fish Oil Burp-Less 1200mg Capsules daily Unknown Immunizations CPT Code Status Date Vaccine Lot # [id number] Given 07/21/2020 Moderna Sars-(Co vid-19) vaccine, mRNA, LNP-S, PF, 100 mcg/ 0.5 mL 20657 Given 06/23/2020 Moderna Sars-(Co vid-19) vaccine, mRNA, LNP-S, PF, 100 mcg/ 0.5 mL 68857 Given 02/20/2020 Influenza Virus Vaccine, Ramy drivalent,multidose vial [id number] 75025 Given 02/17/2019 Influenza Virus Vaccine, Ramy drivalent,multidose vial [id number] 89409 Given 02/15/2018 Influenza Virus Vaccine, Ramy drivalent,multidose vial [id number] Q2038 Given 02/05/2017 Influenza Vaccine (Fluzone)( medicare) [id number] 48649 Given 02/07/2016 Pneumococcal Vaccine [id number] Q2038 Given 01/31/2016 Influenza Vaccine (Fluzone)( medicare) [id number] 01532 Given 01/31/2015 Boostrix (Tdap) Tetnus, Diphtheria Toxoids & Acellular Pertussis [id number] 43275 Given 01/31/2015 Prevnar 13 [id number] 13605 Given 01/29/2015 Zostavax Vital Signs Date Vital Result Comment 02/20/2020 8:45am BP Systolic 126 mmHg BP Diastolic 62 mmHg Heart Rate 67 /min Body Temperature 97.6 F Respiratory Rate 15 /min Height 71 inches 5'11" Weight 168.12 lb O2 % BldC Oximetry 98 % Peak Expiratory Flow Rate 497 Estimated Peak Flow Rate [place] Body Weight 172 lb BMI (Body Mass Index) 23.4 kg/m2 02/17/2019 9:34am BP Systolic 134 mmHg BP Diastolic 74 mmHg Heart Rate 60 /min Body Temperature 97.3 F Respiratory Rate 16 /min Height 71.25 inches 5'11.25" Weight 165.25 lb O2 % BldC Oximetry 98 % Peak Expiratory Flow Rate 514 Estimated Peak Flow Rate [place] Body Weight 172 lb BMI (Body Mass Index) 22.9 kg/m2 Results Test Acquired Date Facility Test Result H/L Range Note Comprehensive Metabolic Profil 02/11/2021 [facility] [phone] Glucose, Fasting 100 mg/dL Normal 70-100 Blood [...] Albumin/Globulin Ratio 1.0 Normal Lipid Panel 02/11/2021 [facility] [phone] Triglycerides Level 108 mg/dL Normal <150 Cholesterol Level 149 mg/dL Normal <200 HDL Cholesterol 40 mg/dL Normal >40 LDL Cholesterol 87 mg/dL Normal <100 Non-HDL-C 109 mg/dL Normal Cholesterol Risk Ratio 3.725 Normal <5 Ua Routine 02/11/2021 [facility] [phone] Appearance, Urine CLEAR Normal Clear Color, Urine STRAW Normal Yellow PH,Urine 6.0 units Normal 5.0-9.0 Specific [place] Urine Auto 1.006 Normal 1.002-1.035 Protein, Urine [...] /LPF Normal 0-1 Laboratory test finding 02/11/2021 [facility] [phone] PSA Screening 4.91 NG/ML High < 4.00 2 CBC With Differential 11/03/2020 [place] [address] [phone] White Blood Count 15.7 10 High 4.0-10.0 [...] 36.0-66.0 Lymph % 12.1 % Low 24.0-44.0 [place] % 4.8 % Normal 2.0-8.0 Eos % 0.5 % Normal 0.0-3.0 Baso % 0.4 % Normal 0.0-1.0 Immature Granulocyte % 0.6 % Normal 0-3.0 Nucleated Red Blood Cell % 0.0 % Normal 0-0 Neutrophils # 12.8 10 High 1.5-8.5 Lymph # 1.9 10 Normal 1.5-5.0 [place] # 0.8 10 Normal 0.0-0.8 Eos # 0.1 10 Normal 0.0-0.5 Baso # 0.1 10 Normal 0.0-0.2 PT & Aptt 11/03/2020 [place] [address] [phone] Prothrombin Time 14.0 seconds Normal 12.5-14.3 Inr 1.06 Normal 3 Partial Thromboplastin Time 25.8 seconds Normal 24.2-38.5 Comprehensive Metabolic Profil 11/03/2020 [place] [address] [phone] Glucose, Fasting 89 mg/dL Normal 70-100 Blood [...] W/ Reflex To Culture 11/03/2020 [place] [address] [phone] Appearance, Urine RFX CLOUDY High Clear Color, Urine RFX ELSY Normal Yellow PH,Urine RFX 6.0 units Normal 5.0-9.0 Specific [place] Ur Auto RFX 1.023 Normal 1.002-1.035 Protein, [...] 0-1 Reflex Urine Culture 11/03/2020 [place] [address] [phone] Reflex Urine Culture FULL REPORT IN L <SEE NOTE> Norm al 5 1 Units are mL/min/1.73 m2 Chronic Kidney Disease Staging per NKF: Stage I & II GFR >=60 Normal to Mildly Decreased Stage III GFR 30-59 Moderately Decreased Stage IV GFR 15-29 Severely Decreased Stage V GFR <15 Very Little GFR Left ESRD GFR <15 on CONTROL SPECIALIST 2 The PSA assay is performed o n the Siemens [place] analyzer by LOCI sandwich chemiluminescent immunoassay and [...] Little GFR Left ESRD GFR <15 on CONTROL SPECIALIST 5 FULL REPORT IN LAB NOTES (eC W and Medent). NO GROWTH CLINICAL SIGNIFICANCE 1 ORGANISM Procedures Date Code Description Status 01/14/2016 18035103 Colonoscopy Completed Medical Devices Description No Information Available Encounters Description No Information Available Assessments Description No Information Available Plan of Treatment Future Appointment(s):* 02/20/2021 9:15 am - Clau Stafford FNP at Main Office 02/20/2020 - Clau Stafford FNP* Z00.00 Encounter for [...] Benign prostatic hyperplasia with lower urinary tract sympto * Z23 Encounter for immunization Functional Status Functional Condition Comment Date Status Bifocal glasses Active Independent with all ADL's Activ e Independent with all IADL's Acti ve Mental Status Description No Information Available Referrals Description No Information Available
--- OUTSIDE RECORDS SUMMARY | 2021-03-27 09:00 | CCD ---
Author Author [facility] Organization [facility] Address Unknown Phone Unavailable Care Team Providers Care Solar Project Manager Name Role Phone Johnnyjonatan Tony Unavailable PROBLEMS Type Condition ICD9-CM Code CPP71-AW Code Onset Dates Condition S tatus W/U Status Risk SNOMED Code Notes Problem Benign prostatic hyperplasia with lower urinary tract symptoms N40.1 Active confirmed [id number] ALLERGIES No Known Allergies ENCOUNTERS from 1950 to 2021-01-23 Encounter Location Date Provider Diagnosis [facility] Urology [address] [phone] [place] [address] Dec, Tony Handley IMMUNIZATIONS No Information SOCIAL [...] Multi Complete - as directed Orally Active [place] 3 120-180 MG 1 capsule Orally Once a day for 30 day(s) Active Viagra 50 MG 1 tablet as needed Orally Once a day for 30 day(s) Active Tamsulosin HCl 0.4 MG 1 capsule Orally Once a day for 30 day(s) Dec, Active PROCEDURES No Information RESULTS No Results REASON FOR VISIT Urine sample MEDICAL (GENERAL) HISTORY Type Description Date [...] Provider Name:Tony Handley, 2020-10-2 0 08:30:00 AM, [address], , [place], [address], Insurance Providers Payer Name Payer Address Payer Phone Insured Name Patient Relati onship to Insured Coverage Start Date Coverage End Date MEDICARE BLUE PPO [address] [facility] BLUE [address] [address] [place] self
--- OUTSIDE RECORDS SUMMARY | 2021-03-27 09:00 | CCD ---
Author Author [facility] Organization [facility] Address Unknown Phone Unavailable Care Team Providers Care Small Electric Engine Technician Name Role Phone Tony Handley Unavailable PROBLEMS Type Condition ICD9-CM Code UBV32-PT Code Onset Dates Condition S tatus W/U Status Risk SNOMED Code Notes Problem Benign prostatic hyperplasia with lower urinary tract symptoms N40.1 Active confirmed [id number] ALLERGIES No Known Allergies ENCOUNTERS from 1950 to 2021-01-08 Encounter Location Date Provider Diagnosis [facility] Urology [address] [phone] [place] [address] Dec, Tony Handley Acute cystitis without hematuria N30.00 IMMUNIZATIONS No Information SOCIAL HISTORY Tobacco Use: [...] days Dec, Active Vitamin D 50 MCG (2000 UT) 1 capsule Orally Once a day for 30 day(s) Active Multi Complete - as directed Orally Active [place] 3 120-180 MG 1 capsule Orally Once a day for 30 day(s) Active Viagra 50 MG 1 tablet as needed Orally Once a day for 30 day(s) Active Tamsulosin HCl 0.4 MG 1 capsule Orally Once a day for 30 day(s) Dec, Active PROCEDURES No Information RESULTS No Results REASON FOR VISIT culture results MEDICAL (GENERAL) HISTORY Type Description Date Medical History Erectile dysfunction Surgical History L KNEE REPAIR Surgical History COLONOSCOPY X4 Surgical History HEMORRHOID SURGERY Surgical History Cystoscopy 20 years ago Surgical History CYSTOSCOPY 01/04 Goals Section No Information Health Concerns No Information MEDICAL EQUIPMENT No Information MENTAL STATUS No Information FUNCTIONAL STATUS No Information ASSESSMENTS Encounter Date Diagnosis Assessment Notes Treatment Notes Treatm ent Clinical Notes Dec, Acute cystitis without hematuria (ICD-10 - N30.0 0) PLAN OF TREATMENT Medication Medication Name Sig Start Date Stop Date Tamsulosin HCl 0.4 MG 1 capsule Orally Once a day for 30 day(s) Dec, Bactrim DS 800-160 MG 1 tablet Orally Twice a day for 5 days Dec, Next Appt Details Provider Name:Tony Handley, 2020-10-2 0 08:30:00 AM, [address], , [place], [address], Insurance Providers Payer Name Payer Address Payer Phone Insured Name Patient Relati onship to Insured Coverage Start Date Coverage End Date MEDICARE BLUE O [address] [place] [id number] [place]
--- OUTSIDE RECORDS SUMMARY | 2021-03-27 09:00 | CCD | Continuity of Care Document ---
Author Author Vasyl [facility] Organization Unknown Address [address], [address] [place] [address] Phone [phone] Problems Active Problems Provider Date Pure hypercholesterolemia Robby Khan M.D. Onset: 2012 Social History Type Date Description Comments Sex Unknown ETOH Use 2-3 A Week Recreational Drug Use Denies Drug Use Tobacco Use Start: Unknown Denies Smoking Allergies, Adverse Reactions, Alerts Description No Known Drug Allergies Medications Active Medications SIG Qnty Indications Ordering Provide r Date Vitamin D 78011Cktl Capsules 1 po q weekly 4caps Unknown Fish Oil 1000mg Capsules once a day Unknown Multivitamins Capsules once a day Unknown Viagra 100mg Tablets 1 by mouth every day as needed Unknown Immunizations Description No Information Available Vital Signs Date Vital Result Comment 02/05/2021 11:18am BP Systolic 132 mmHg BP Diastolic 68 mmHg Body Temperature 98.4 F Height 72 inches 6'0" Weight 171.00 lb BMI (Body Mass Index) 23.2 kg/m2 [place] Body Weight 178 lb Weight 77.566 kg BSA (Body Surface Area) 1.99 m2 06/15/2018 10:40am BP Systolic 130 mmHg BP Diastolic 80 mmHg Height 72 inches 6'0" Weight 169.12 lb BMI (Body Mass Index) 22.9 kg/m2 [place] Body Weight 178 lb Weight 76.715 kg BSA (Body Surface Area) 1.98 m2 Results Description No Information Available Procedures Date Code Description Status 02/05/2021 46600 Office/Outpatient Established Lo w MDM 20-29 Min Completed Medical Devices Description No Information Available Encounters Type Date Location Provider Dx Diagnosis Office Visit 02/05/2021 11:15a [facility] ANN MARIE Gutierrez Z86.010 Personal history of colonic polyps K64.9 Unspecified hemorrhoids K57.30 Dvrtclos of lg int w/o perfo ration or abscess w/o bleeding Assessments Date Code Description Provider 02/05/2021 Z86.010 Personal history of colonic poly ps ANN MARIE Busch 02/05/2021 K64.9 Unspecified hemorrhoids ANN MARIE Cooper 02/05/2021 K57.30 Diverticulosis of la rge intestine without perforation or abscess without bleeding ANN MARIE Busch Plan of Treatment Future Appointment(s):* 04/09/2021 1:00 pm - ANN MARIE Busch at [facility] * 03/27/2021 11:00 am - Robby Khan M.D. at [facility] 02/05/2021 - ANN MARIE Busch* Z86.010 Personal history of colonic polyps * K64.9 Unspecified hemorrhoids * K57.30 Diverticulosis of large intestine without perforation or abscess without bleeding Functional Status Description No Information Available Mental Status Description No Information Available Referrals Description No Information Available
--- OUTSIDE RECORDS SUMMARY | 2021-03-27 09:00 | CCD ---
Author Author [facility] Organization [facility] Address Unknown Phone Unavailable Care Team Providers Care Guard Captain Name Role Phone Tony Handley Unavailable PROBLEMS Type Condition ICD9-CM Code [id number] Code Onset Dates Condition S tatus W/U Status Risk SNOMED Code Notes Problem Benign prostatic hyperplasia with lower urinary tract symptoms N40.1 Active confirmed [id number] ALLERGIES No Known Allergies ENCOUNTERS from 1950 to 2021-02-16 Encounter Location Date Provider Diagnosis [facility] Urology [address] [phone] [place] [address] Dec, Tony Handley Gross hematuria R31.0 ; Acute cystitis w ithout hematuria N30.00 ; Stricture of anterior urethra in male, unspecified stricture type N35.914 ; Benign prostatic hyperplasia with lower urinary tract symptoms N40.1 ; Screening PSA (prostate specific antigen) Z12.5 and Feeling of incomplete bladder emptying R39.14 IMMUNIZATIONS No Information SOCIAL HISTORY Tobacco Use: [...] REASON FOR REFERRAL No Information VITAL SIGNS Weight 166 lbs Dec, Weight-kg 75.3 kg Dec, Height 72 in Dec, BMI 22.51 kg/m2 Dec, Heart Rate 67 /min Dec, Respiratory Rate 18 /min Dec, Temperature 97.6 degrees Fahrenheit Dec, Oximetry 99 Dec, Blood pressure systolic 140 mm Hg Dec, Blood pressure diastolic 80 mm Hg Dec, MEDICATIONS Medication SIG (Take, Route, Frequency, Duration) Notes Start Da te End Date Status Viagra 50 MG 1 tablet as needed Orally Once a day for 30 day(s) Active Multi Complete - as directed Orally Active Tamsulosin HCl 0.4 MG 1 capsule Orally Once a day for 30 day(s) Dec, Active Bactrim DS 800-160 MG 1 tablet Orally Twice a day for 5 days Dec, Active Bactrim DS 800-160 MG 1 tablet Orally Twice a day Jan, Active [place] 3 120-180 MG 1 capsule Orally Once a day for 30 day(s) Active Vitamin D 50 MCG (1999) 1 capsule Orally Once a day for 30 day(s) Active PROCEDURES from 1950 to 2021-02-16 Procedure Date Ordered Result Body Site uro PVR (Post Voiding Residual) Bladder Scan 2021-01-01 N/A Med: Lidocaine Jelly 2% 6ml Intravesically (Glydo) 2021-01-01 N/A RESULTS Component Value Reference Range UA URINALYSIS Reviewed date:01/08/2021 12:21:36 Interpretation: Performing Lab:[facility] [address] [address] , ,[place] [address] URINE CULTURE Reviewed date:01/08/2021 12:21:25 Interpretation: Performing Lab:[facility] [address] [facility] [address] , ,[facility] REASON FOR VISIT freq uti MEDICAL (GENERAL) HISTORY Type Description Date Medical [...] Treatment Notes Treatm ent Clinical Notes Dec, Gross hematuria (ICD-10 - R31.0) Dec, Acute cystitis without hematuria (ICD-10 - N30.0 0) Dec, Stricture of anterior urethr a in male, unspecified stricture type (ICD-10 - N35.914) Dec, Benign prostatic hyperplasia with lower urinary tract symptoms (ICD-10 - N40.1) Dec, Screening PSA (prostate specific antigen) (ICD-1 0 - Z12.5) Dec, Feeling of incomplete bladder emptying (ICD-10 - R39.14) PLAN OF TREATMENT Medication Medication Name Sig Start Date Stop Date Bactrim DS 800-160 MG 1 tablet Orally Twice a day for 5 days Dec, Bactrim DS 800-160 MG 1 tablet Orally Twice a day 13 Jan, 2021 Tamsulosin HCl 0.4 MG 1 capsule Orally Once a day for 30 day(s) Dec, Next Appt Details February 2021 Reason:BPH and other dx's Provider Name:Tony Handley, 2020--2 0 08:30:00 AM, [address], , [place], [address], Follow Up:FebruaryPH and other dx's Insurance Providers Payer Name Payer Address Payer Phone Insured Name Patient Relati onship to Insured Coverage Start Date Coverage End Date MEDICARE BLUE PPO [phone] [address] [place]
--- OUTSIDE RECORDS SUMMARY | 2021-03-27 09:00 | CCD ---
Author Author [facility] Organization [facility] Address Unknown Phone Unavailable Care Team Providers Care Surgical Instruments Inspector Name Role Phone Tony Handley Unavailable PROBLEMS Type Condition ICD9-CM Code [id number] Code Onset Dates Condition S tatus W/U Status Risk SNOMED Code Notes Problem Benign prostatic hyperplasia with lower urinary tract symptoms N40.1 Active confirmed [id number] ALLERGIES No Known Allergies ENCOUNTERS from 1950 to 2021-01-28 Encounter Location Date Provider Diagnosis [facility] Urology [address] [phone] [place] [address] Jan, Tony Handley Acute cystitis without hematuria N30.00 [...] tablet Orally Twice a day Jan, Active [place] 3 120-180 MG 1 capsule Orally Once a day for 30 day(s) Active Vitamin D 50 MCG (1999) 1 capsule Orally Once a day for 30 day(s) Active PROCEDURES No Information RESULTS No Results REASON FOR VISIT Urinary Tract Infection MEDICAL (GENERAL) HISTORY Type Description Date Medical [...] Notes Treatment Notes Treatm ent Clinical Notes Jan, Acute cystitis without hematuria (ICD-10 - N30.0 0) PLAN OF TREATMENT Medication Medication Name Sig Start Date Stop Date Bactrim DS 800-160 MG 1 tablet Orally Twice a day for 5 days Dec, Bactrim DS 800-160 MG 1 tablet Orally Twice a day Jan, Tamsulosin HCl 0.4 MG 1 capsule Orally Once a day for 30 day(s) Dec, Next Appt Details Provider Name:Tony Handley, 2020-10-2 0 08:30:00 AM, [address], , [place], [address], Insurance Providers Payer Name Payer Address Payer Phone Insured Name Patient Relati onship to Insured Coverage Start Date Coverage End Date MEDICARE BLUE PPO [address] [facility] BLUE [address] [address] [place]
--- OUTSIDE RECORDS SUMMARY | 2021-03-27 09:00 | CCD | Continuity of Care Document ---
Author Author Vasyl [facility] Organization Unknown Address [address] [place] [address] Phone [phone] Care Team Providers Care Shelf Filler Name Role Phone [facility] - Otolaryngology AUTM [phone] Problems Active Problems Provider Date Allergic rhinitis [...] Provide r Date Vitamin D (Ergocalciferol) 1.25mg (13315 Ut) Capsules take 1 capsule by mouth [...] CPT Code Status Date Vaccine Lot # [id number] Given 02/20/2021 Influenza Virus Vaccine, Ramy drivalent,multidose vial [id number] 95736 Given 07/21/2020 Moderna Sars-(Co vid-19) vaccine, mRNA, LNP-S, PF, 100 mcg/ 0.5 mL 41449 Given 06/23/2020 Moderna Sars-(Co vid-19) vaccine, mRNA, LNP-S, PF, 100 mcg/ 0.5 mL 62080 Given 02/20/2020 Influenza Virus Vaccine, Ramy drivalent,multidose vial [id number] 27837 Given 02/17/2019 Influenza Virus Vaccine, Ramy drivalent,multidose vial [id number] 33779 Given 02/15/2018 Influenza Virus Vaccine, Ramy drivalent,multidose vial [id number] Q2038 Given 02/05/2017 Influenza Vaccine (Fluzone)( medicare) [id number] 54460 Given 02/07/2016 Pneumococcal Vaccine [id number] Given 01/31/2016 Influenza Vaccine (Fluzone)( medicare) [id number] 65693 Given 01/31/2015 Boostrix (Tdap) Tetnus, Diphtheria Toxoids & Acellular Pertussis [id number] 81745 Given 01/31/2015 Prevnar 13 [id number] 17646 Given 01/29/2015 Zostavax Vital Signs Date Vital Result Comment 02/20/2021 9:12am BP Systolic 121 mmHg BP Diastolic 59 mmHg Heart Rate 68 /min Body Temperature 97.0 F Respiratory Rate 16 /min Height 71 inches 5'11" Weight 171.25 lb O2 % BldC Oximetry 98 % Peak Expiratory Flow Rate 509 Estimated Peak Flow Rate [place] Body Weight 172 lb BMI (Body Mass Index) 23.9 kg/m2 02/20/2020 8:45am BP Systolic 126 mmHg BP Diastolic 62 mmHg Heart Rate 67 /min Body Temperature 97.6 F Respiratory Rate 15 /min Height 71 inches 5'11" Weight 168.12 lb O2 % BldC Oximetry 98 % Peak Expiratory Flow Rate 497 Estimated Peak Flow Rate [place] Body Weight 172 lb BMI (Body Mass Index) 23.4 kg/m2 Results Test Acquired Date Facility Test Result H/L Range Note Comprehensive Metabolic Profil 02/11/2021 [facility] [phone] Glucose, Fasting 100 mg/dL Normal 70-100 Blood [...] Albumin/Globulin Ratio 1.0 Normal Lipid Panel [facility] [phone] Triglycerides Level 108 mg/dL Normal <150 Cholesterol Level 149 mg/dL Normal <200 HDL Cholesterol 40 mg/dL Normal >40 LDL Cholesterol 87 mg/dL Normal <100 Non-HDL-C 109 mg/dL Normal Cholesterol Risk Ratio 3.725 Normal <5 Ua Routine 02/11/[facility] [phone] Appearance, Urine CLEAR Normal Clear Color, Urine STRAW Normal Yellow PH,Urine 6.0 units Normal 5.0-9.0 Specific [place] Urine Auto 1.006 Normal 1.002-1.035 Protein, Urine [...] /LPF Normal 0-1 Laboratory test finding 02/11/2021 [facility] [phone] PSA Screening 4.91 NG/ML High < 4.00 2 CBC With Differential 11/03/2020 Patient Service [facility] [place] [address] [phone] White Blood Count 15.7 10 High 4.0-10.0 [...] 36.0-66.0 Lymph % 12.1 % Low 24.0-44.0 [place] % 4.8 % Normal 2.0-8.0 Eos % 0.5 % Normal 0.0-3.0 Baso % 0.4 % Normal 0.0-1.0 Immature Granulocyte % 0.6 % Normal 0-3.0 Nucleated Red Blood Cell % 0.0 % Normal 0-0 Neutrophils # 12.8 10 High 1.5-8.5 Lymph # 1.9 10 Normal 1.5-5.0 [place] # 0.8 10 Normal 0.0-0.8 Eos # 0.1 10 Normal 0.0-0.5 Baso # 0.1 10 Normal 0.0-0.2 PT & Aptt 11/03/2020 [place] [address] [phone] Prothrombin Time 14.0 seconds Normal 12.5-14.3 Inr 1.06 Normal 3 Partial Thromboplastin Time 25.8 seconds Normal 24.2-38.5 Comprehensive Metabolic Profil 11/03/2020 [place] [address] [phone] Glucose, Fasting 89 mg/dL Normal 70-100 Blood [...] Reflex To Culture 11/03/2020 Patient Service [facility] [place], [place] [id number] [phone] Appearance, Urine RFX CLOUDY High Clear Color, Urine RFX ELSY Normal Yellow PH,Urine RFX 6.0 units Normal 5.0-9.0 Specific [place] Ur Auto RFX 1.023 Normal 1.002-1.035 Protein, [...] 0-1 Reflex Urine Culture 11/03/2020 Patient Service [facility] [place] [address] [phone] Reflex Urine Culture FULL REPORT IN L <SEE NOTE> Norm al 5 1 Units are mL/min/1.73 m2 Chronic Kidney Disease Staging per NKF: Stage I & II GFR >=60 Normal to Mildly Decreased Stage III GFR 30-59 Moderately Decreased Stage IV GFR 15-29 Severely Decreased Stage V GFR <15 Very Little GFR Left ESRD GFR <15 on FITTER ARMAMENT 2 The PSA assay is performed o n the Siemens [place] analyzer by LOCI sandwich chemiluminescent immunoassay and [...] Little GFR Left ESRD GFR <15 on FITTER ARMAMENT 5 FULL REPORT IN LAB NOTES (eC W and Medent). NO GROWTH CLINICAL SIGNIFICANCE 1 ORGANISM Procedures Date Code Description Status 02/20/2021 15995 Office/Outpatient Established Lo w MDM 20-29 Min [...] Clau Stafford FNP 02/20/2021 E78.2 Mixed hyperlipidemia aJke Stafford FNP 02/20/2021 N40.1 Benign prostatic hyperplasia [...]
--- OUTSIDE RECORDS SUMMARY | 2021-03-27 09:00 | CCD | Continuity of Care Document ---
Author Author Vasyl FUNES PA Organization Unknown Address [address], [address] [place] [address] Phone [phone] Problems Active Problems Provider Date Pure hypercholesterolemia Robby Khan M.D. Onset: 2012 Social History Type Date Description Comments Sex Unknown ETOH Use 2-3 A Week Recreational Drug Use Denies Drug Use Tobacco Use Start: Unknown Denies Smoking Allergies, Adverse Reactions, Alerts Description No Known Drug Allergies Medications Active Medications SIG Qnty Indications Ordering Provide r Date Vitamin D 44572Mpxk Capsules 1 po q weekly 4caps Unknown [...] lb BMI (Body Mass Index) 23.2 kg/m2 [place] Body Weight 178 lb Weight 77.566 kg BSA (Body Surface Area) 1.99 m2 06/15/2018 10:40am BP Systolic 130 mmHg BP Diastolic 80 mmHg Height 72 inches 6'0" Weight 169.12 lb BMI (Body Mass Index) 22.9 kg/m2 [place] Body Weight 178 lb Weight 76.715 kg BSA (Body Surface Area) 1.98 m2 Results Description No Information Available Procedures Description No Information Available Medical Devices Description No Information Available Encounters Description No Information Available Assessments Date Code Description Provider 02/05/2021 Z86.010 Personal history of colonic poly ps ANN MARIE Busch 02/05/2021 K64.9 Unspecified hemorrhoids ANN MARIE Cooper 02/05/2021 K57.30 Diverticulosis of la rge intestine without perforation or abscess without bleeding ANN MARIE Busch Plan of Treatment No Information Available Functional Status Description No Information Available Mental Status Description No Information Available Referrals Description No Information Available
--- OUTSIDE RECORDS SUMMARY | 2021-03-27 09:00 | CCD | Continuity of Care Document ---
Author Author Vasyl [facility] Organization Unknown Address [address] [place] [address] Phone [phone] Care Team Providers Care Parboiler Name Role Phone [facility] - Otolaryngology AUTM [phone] Problems Active Problems Provider Date Allergic rhinitis [...] Provide r Date Vitamin D (Ergocalciferol) 1.25mg (19333 Ut) Capsules take 1 capsule by mouth [...] CPT Code Status Date Vaccine Lot # [id number] Given 02/20/2021 Influenza Virus Vaccine, Ramy drivalent,multidose vial [id number] 41581 Given 07/21/2020 Moderna Sars-(Co vid-19) vaccine, mRNA, LNP-S, PF, 100 mcg/ 0.5 mL 30599 Given 06/23/2020 Moderna Sars-(Co vid-19) vaccine, mRNA, LNP-S, PF, 100 mcg/ 0.5 mL 04141 Given 02/20/2020 Influenza Virus Vaccine, Ramy drivalent,multidose vial [id number] 44926 Given 02/17/2019 Influenza Virus Vaccine, Ramy drivalent,multidose vial [id number] 62358 Given 02/15/2018 Influenza Virus Vaccine, Ramy drivalent,multidose vial [id number] Q2038 Given 02/05/2017 Influenza Vaccine (Fluzone)( medicare) [id number] 75246 Given 02/07/2016 Pneumococcal Vaccine [id number] Q2038 Given 01/31/2016 Influenza Vaccine (Fluzone)( medicare) [id number] 74754 Given 01/31/2015 Boostrix (Tdap) Tetnus, Diphtheria Toxoids & Acellular Pertussis [id number] 76500 Given 01/31/2015 Prevnar 13 [id number] 28316 Given 01/29/2015 Zostavax Vital Signs Date Vital Result Comment 02/20/2021 9:12am BP Systolic 121 mmHg BP Diastolic 59 mmHg Heart Rate 68 /min Body Temperature 97.0 F Respiratory Rate 16 /min Height 71 inches 5'11" Weight 171.25 lb O2 % BldC Oximetry 98 % Peak Expiratory Flow Rate 509 Estimated Peak Flow Rate [place] Body Weight 172 lb BMI (Body Mass Index) 23.9 kg/m2 02/20/2020 8:45am BP Systolic 126 mmHg BP Diastolic 62 mmHg Heart Rate 67 /min Body Temperature 97.6 F Respiratory Rate 15 /min Height 71 inches 5'11" Weight 168.12 lb O2 % BldC Oximetry 98 % Peak Expiratory Flow Rate 497 Estimated Peak Flow Rate [place] Body Weight 172 lb BMI (Body Mass Index) 23.4 kg/m2 Results Test Acquired Date Facility Test Result H/L Range Note Comprehensive Metabolic Profil 02/11/2021 [facility] [phone] Glucose, Fasting 100 mg/dL Normal 70-100 Blood [...] Albumin/Globulin Ratio 1.0 Normal Lipid Panel [facility] [phone] Triglycerides Level 108 mg/dL Normal <150 Cholesterol Level 149 mg/dL Normal <200 HDL Cholesterol 40 mg/dL Normal >40 LDL Cholesterol 87 mg/dL Normal <100 Non-HDL-C 109 mg/dL Normal Cholesterol Risk Ratio 3.725 Normal <5 Ua Routine 02/11/[facility] [phone] Appearance, Urine CLEAR Normal Clear Color, Urine STRAW Normal Yellow PH,Urine 6.0 units Normal 5.0-9.0 Specific [place] Urine Auto 1.006 Normal 1.002-1.035 Protein, Urine [...] /LPF Normal 0-1 Laboratory test finding 02/11/2021 [facility] [phone] PSA Screening 4.91 NG/ML High < 4.00 2 CBC With Differential 11/03/2020 [facility] [place] [address] [phone] White Blood Count 15.7 10 High 4.0-10.0 [...] 36.0-66.0 Lymph % 12.1 % Low 24.0-44.0 [place] % 4.8 % Normal 2.0-8.0 Eos % 0.5 % Normal 0.0-3.0 Baso % 0.4 % Normal 0.0-1.0 Immature Granulocyte % 0.6 % Normal 0-3.0 Nucleated Red Blood Cell % 0.0 % Normal 0-0 Neutrophils # 12.8 10 High 1.5-8.5 Lymph # 1.9 10 Normal 1.5-5.0 [place] # 0.8 10 Normal 0.0-0.8 Eos # 0.1 10 Normal 0.0-0.5 Baso # 0.1 10 Normal 0.0-0.2 PT & Aptt 11/03/2020 [place] [address] [phone] Prothrombin Time 14.0 seconds Normal 12.5-14.3 Inr 1.06 Normal 3 Partial Thromboplastin Time 25.8 seconds Normal 24.2-38.5 Comprehensive Metabolic Profil 11/03/2020 [place], [place] [id number] [phone] Glucose, Fasting 89 mg/dL Normal 70-100 Blood [...] Reflex To Culture 11/03/2020 [facility] [place], [place] [address] [phone] Appearance, Urine RFX CLOUDY High Clear Color, Urine RFX ELSY Normal Yellow PH,Urine RFX 6.0 units Normal 5.0-9.0 Specific [place] Ur Auto RFX 1.023 Normal 1.002-1.035 Protein, [...] 0-1 Reflex Urine Culture 11/03/2020 Patient Service [facility] [place] [address] [phone] Reflex Urine Culture FULL REPORT IN L <SEE NOTE> Norm al 5 1 Units are mL/min/1.73 m2 Chronic Kidney Disease Staging per NKF: Stage I & II GFR >=60 Normal to Mildly Decreased Stage III GFR 30-59 Moderately Decreased Stage IV GFR 15-29 Severely Decreased Stage V GFR <15 Very Little GFR Left ESRD GFR <15 on CHECKROOM ATTENDANT 2 The PSA assay is performed o n the Siemens [place] analyzer by LOCI sandwich chemiluminescent immunoassay and [...] Little GFR Left ESRD GFR <15 on CHECKROOM ATTENDANT 5 FULL REPORT IN LAB NOTES (eC W and Medent). NO GROWTH CLINICAL SIGNIFICANCE 1 ORGANISM Procedures Date Code Description Status 02/20/2021 84355 Office/Outpatient Established Lo w MDM 20-29 Min [...]
--- NOTE | 2021-03-27 11:12 | ROOR ---
Patient Name: Vasyl Dwyer Procedure Date: 03/27/2021 10:30 AM Date of : 1950 Age: 70 Room: [facility] Gender: Male Note Status: Finalized Procedure: Colonoscopy Indications: High risk colon cancer surveillance: Personal history of colonic polyps, Last colonoscopy: 2015 Providers: Robby Khan MD Referring MD: Giana Whitaker MD Requesting Provider: Medicines: Monitored Anesthesia Care Complications: No immediate complications. Procedure: Pre-Anesthesia Assessment: - Prior to the procedure, a History and Physical was performed, and patient medications and allergies were reviewed. The patient is competent. The risks and benefits of the procedure and the sedation options and risks were discussed with the patient. All questions were answered and informed consent was obtained. Patient identification and proposed procedure were verified by the physician, the nurse and the receiver setter in the procedure room. Mental Status Examination: alert and oriented. Airway Examination: normal oropharyngeal airway and neck mobility. Prophylactic Antibiotics: The patient does not require prophylactic antibiotics. Prior Anticoagulants: The patient has taken no previous anticoagulant or antiplatelet agents. ASA Grade Assessment: II - A patient with mild systemic disease. After reviewing the risks and benefits, the patient was deemed in satisfactory condition to undergo the procedure. The anesthesia plan was to use monitored anesthesia care (MAC). Immediately prior to administration of medications, the patient was re-assessed for adequacy to receive sedatives. The heart rate, respiratory rate, oxygen saturations, blood pressure, adequacy of pulmonary ventilation, and response to care were monitored throughout the procedure. The physical status of the patient was re-assessed after the procedure. The Colonoscope was introduced through the anus and advanced to the cecum, identified by appendiceal orifice and ileocecal valve. The colonoscopy was performed without difficulty. The patient tolerated the procedure well. The quality of the bowel preparation was good. Findings: The perianal and digital rectal examinations were normal. A few medium-mouthed diverticula were found in the descending colon, transverse colon and ascending colon. Many small and large-mouthed diverticula were found in the sigmoid colon. Impression: - Diverticulosis in the descending colon, in the transverse colon and in the ascending colon. - Diverticulosis in the sigmoid colon. - No specimens collected. Recommendation: - Discharge patient to home. - Resume previous diet. - Continue present medications. - Repeat colonoscopy in 5 years for surveillance. Procedure Code(s): --- Professional --- G0105, Colorectal cancer screening; colonoscopy on individual at high risk Diagnosis Code(s): --- Professional --- Z86.010, Personal history of colonic polyps K57.30, Diverticulosis of large intestine without perforation or abscess without bleeding CPT copyright 2019 [employer]. All rights reserved. The codes documented in this report are preliminary and upon coverage analyst review may be revised to meet current compliance requirements. Robby Khan MD Robby Khan MD 03/27/2021 11:12:12 AM Electronically signed by Robby Khan MD Number of Addenda: 0 Note Initiated On: 03/27/2021 10:30 AM Estimated Blood Loss: Estimated blood loss: none.
[2021-03-27 11:23] VITALS: BP 112/68
== END 2021-03-27 11:32 | disposition home or self-care (01) ==
LOC: M OPP 08:54
PROVIDERS: ATTEND Surgery
DX: K57.30 Diverticulosis of large intestine without perforation or abscess without bleeding (principal); Z86.010 Personal history of colon polyps; Z12.11 Encounter for screening for malignant neoplasm of colon

== ENCOUNTER → 2021-03-31 | Outpatient (CLI) | payer MEDICARE ==
[~2021-03-31] MED LIST changes: -LIDOCAINE 2% 100MG/5ML SDV (FOR ANES.) As Ordered ONE; -NS 1,000 ML IV ONE; -propofoL 200 MG/20 ML VIAL As Ordered ONE
== END ==
LOC: M WUC 10:58
PROVIDERS: ATTEND Urology
DX: R97.20 Elevated prostate specific antigen [PSA] (principal)

== ENCOUNTER → 2021-09-29 | Outpatient (REF) | payer MEDICARE | LOC: M SMT 19:20 | PROVIDERS: ATTEND Urology | DX: R97.20 Elevated prostate specific antigen [PSA] (principal) ==

== ENCOUNTER → 2022-02-06 | Outpatient (CLI) | payer MEDICARE ==
[2022-02-06 13:07] LABS: ALBUMIN 3.3 GM/DL (3.2-5.2); ALT/SGPT 24 U/L (12-78); BILIRUBIN,TOTAL 0.6 MG/DL (0.2-1.0); BLOOD UREA NITROGEN 13 MG/DL (7-18); CALCIUM LEVEL 8.7 MG/DL (8.8-10.2); CARBON DIOXIDE LEVEL 29 MEQ/L (21-32); CHLORIDE LEVEL 110 MEQ/L (98-107); CHOLESTEROL LEVEL 154 MG/DL (<200); CHOLESTEROL RISK RATIO 4.162 (<5); CREATININE FOR GFR 0.87 MG/DL (0.70-1.30); GLOMERULAR FILTRATION RATE > 60.0 (>42); GLUCOSE, FASTING 93 MG/DL (70-100); HDL CHOLESTEROL 37 MG/DL (>40); LDL CHOLESTEROL 99 MG/DL (<100); NON-HDL-C 117 MG/DL; POTASSIUM SERUM 4.2 MEQ/L (3.5-5.1); SODIUM LEVEL 142 MEQ/L (136-145); TOTAL PROTEIN 6.2 GM/DL (6.4-8.2); TRIGLYCERIDES LEVEL 88 MG/DL (<150)
[2022-02-06 14:04] LABS: TOTAL 25(OH) VITAMIN D 94.5 NG/ML (30.0-100.0)
== END ==
LOC: M WUC 08:45
PROVIDERS: ATTEND Nurse Practitioner Family
DX: E78.2 Mixed hyperlipidemia (principal); E55.9 Vitamin D deficiency, unspecified; N40.1 Benign prostatic hyperplasia with lower urinary tract symptoms; Z79.899 Other long term (current) drug therapy; Z12.5 Encounter for screening for malignant neoplasm of prostate
CPT/HCPCS: 36415; 80053; 80061; 82306; G0103

== ENCOUNTER → 2023-03-11 | Outpatient (CLI) | payer MEDICARE ==
[2023-03-11 19:27] LABS: ALBUMIN 3.4 G/DL (3.2-5.2); ALKALINE PHOSPHATASE 68 U/L (46-116); ALT/SGPT 23 U/L (7.0-40); AST/SGOT 15 U/L (<34); BILIRUBIN,TOTAL 0.5 MG/DL (0.3-1.2); BLOOD UREA NITROGEN 17 MG/DL (9-23); CALCIUM LEVEL 9.1 MG/DL (8.3-10.6); CARBON DIOXIDE LEVEL 31 MMOL/L (20-31); CHLORIDE LEVEL 103 MMOL/L (98-107); CHOLESTEROL LEVEL 185 MG/DL (<200); CHOLESTEROL RISK RATIO 4.85 (<5); CREATININE FOR GFR 0.87 MG/DL (0.70-1.30); GLOMERULAR FILTRATION RATE > 60.0 (>42); GLUCOSE, FASTING 85 MG/DL (74-106); HDL CHOLESTEROL 38.1 MG/DL (>40); LDL CHOLESTEROL 117.3 MG/DL (<100); NON-HDL-C 146.9 MG/DL; POTASSIUM SERUM 4.3 MMOL/L (3.5-5.1); SODIUM LEVEL 141 MMOL/L (136-145); TOTAL PROTEIN 6.3 G/DL (5.7-8.2); TRIGLYCERIDES LEVEL 148 MG/DL (<150)
[2023-03-11 19:29] LABS: TOTAL 25(OH) VITAMIN D 74.7 NG/ML (20.0-100.0)
== END ==
LOC: M WUC 14:30
PROVIDERS: ATTEND Nurse Practitioner Family
DX: E78.2 Mixed hyperlipidemia (principal); E55.9 Vitamin D deficiency, unspecified; N40.1 Benign prostatic hyperplasia with lower urinary tract symptoms
CPT/HCPCS: 36415; 80053; 80061; 82306; G0103

== ENCOUNTER → 2023-03-22 | Outpatient (REF) | payer MEDICARE | LOC: M LAB REF 21:13 | PROVIDERS: ATTEND Student in an Organized Health Care Education/Training Program | DX: R30.0 Dysuria (principal) ==

== ENCOUNTER → 2024-03-20 | Outpatient (CLI) | payer MEDICARE ==
[~2024-03-20] MED LIST changes: +ALFU10TA23 PO; -ALFU10TA3 PO
[2024-03-20 11:21] LABS: PSA SCREENING 1.73 NG/ML (< 4.00)
[2024-03-20 11:24] LABS: ALBUMIN 3.3 G/DL (3.2-5.2); ALKALINE PHOSPHATASE 62 U/L (40-129); ALT/SGPT 22 U/L (7.0-40); AST/SGOT 13 U/L (<34); BILIRUBIN,TOTAL 0.6 MG/DL (0.3-1.2); BLOOD UREA NITROGEN 12 MG/DL (9-23); CALCIUM LEVEL 9.4 MG/DL (8.3-10.6); CARBON DIOXIDE LEVEL 31 MMOL/L (20-31); CHLORIDE LEVEL 106 MMOL/L (98-107); CHOLESTEROL LEVEL 187 MG/DL (<200); CHOLESTEROL RISK RATIO 5.61 (<5); CREATININE FOR GFR 0.91 MG/DL (0.70-1.30); GLOMERULAR FILTRATION RATE > 60.0 (>42); GLUCOSE, FASTING 78 MG/DL (74-106); HDL CHOLESTEROL 33.3 MG/DL (>40); LDL CHOLESTEROL 124.7 MG/DL (<100); NON-HDL-C 153.7 MG/DL; POTASSIUM SERUM 4.6 MMOL/L (3.5-5.1); SODIUM LEVEL 143 MMOL/L (136-145); TOTAL PROTEIN 6.4 G/DL (5.7-8.2); TRIGLYCERIDES LEVEL 145 MG/DL (<150)
[2024-03-20 11:25] LABS: TOTAL 25(OH) VITAMIN D 90.9 NG/ML (20.0-100.0)
== END ==
LOC: M WUC 08:22
PROVIDERS: ATTEND Nurse Practitioner Family
DX: E78.2 Mixed hyperlipidemia (principal); E55.9 Vitamin D deficiency, unspecified; N40.1 Benign prostatic hyperplasia with lower urinary tract symptoms; Z12.5 Encounter for screening for malignant neoplasm of prostate
CPT/HCPCS: 36415; 80053; 80061; 82306; G0103

== ENCOUNTER → 2024-08-18 | Outpatient (REF) | payer MEDICARE ==
[2024-08-18 17:56] LABS: APPEARANCE, URINE CLEAR (CLEAR); BACTERIA, URINE AUTO NEGATIVE (NEGATIVE); BILIRUBIN, URINE AUTO NEGATIVE (NEGATIVE); BLOOD, URINE BLOOD 3+ (NEGATIVE); COLOR, URINE YELLOW (YELLOW); GLUCOSE, URINE (UA) AUTO NEGATIVE (NEGATIVE); KETONE, URINE AUTO NEGATIVE (NEGATIVE); LEUKOCYTE ESTERASE, URINE AUTO NEGATIVE (NEGATIVE); MUCUS, URINE SMALL (NEGATIVE); NITRITE, URINE AUTO NEGATIVE (NEGATIVE); PROTEIN, URINE AUTO NEGATIVE (NEGATIVE); RBC, URINE AUTO 36 /HPF (0-3); SPECIFIC GRAVITY URINE AUTO 1.008 (1.002-1.035); SQUAMOUS EPITHELIAL CELL UR AU 0 /HPF (0-6); UROBILINOGEN, URINE AUTO 0.2 mg/dL (0.0-2.0); WBC, URINE AUTO 1 /HPF (0-3)
== END ==
LOC: M SMT 16:48
PROVIDERS: ATTEND Urology
DX: R31.0 Gross hematuria (principal)

== ENCOUNTER → 2024-08-31 | Outpatient (CLI) | payer MEDICARE ==
[2024-08-31 13:36] LABS: BLOOD UREA NITROGEN 15 MG/DL (9-23); CALCIUM LEVEL 8.9 MG/DL (8.3-10.6); CARBON DIOXIDE LEVEL 31 MMOL/L (20-31); CHLORIDE LEVEL 102 MMOL/L (98-107); CREATININE FOR GFR 0.85 MG/DL (0.70-1.30); GLOMERULAR FILTRATION RATE > 90.0 (>42); GLUCOSE, FASTING 87 MG/DL (74-106); POTASSIUM SERUM 4.3 MMOL/L (3.5-5.1); SODIUM LEVEL 141 MMOL/L (136-145)
== END ==
LOC: M WUC 10:55
PROVIDERS: ATTEND Urology
DX: R31.0 Gross hematuria (principal)

== ENCOUNTER → 2024-09-06 | Outpatient (CLI) | payer MEDICARE ==
[~2024-09-06] MED LIST changes: +ISOVUE-370 76% 100ML VIAL As Ordered ONE
== END ==
LOC: M RAD 09:07
PROVIDERS: ATTEND Urology
DX: R31.0 Gross hematuria (principal); N40.1 Benign prostatic hyperplasia with lower urinary tract symptoms; K57.30 Diverticulosis of large intestine without perforation or abscess without bleeding
CPT/HCPCS: 74178; Q9967

== ENCOUNTER → 2024-09-12 | Outpatient (REF) | payer MEDICARE ==
[~2024-09-12] MED LIST changes: -ISOVUE-370 76% 100ML VIAL As Ordered ONE
== END ==
LOC: M SMT 16:57
PROVIDERS: ATTEND Urology
DX: R31.0 Gross hematuria (principal)

== ENCOUNTER → 2025-03-13 | Outpatient (CLI) | payer MEDICARE ==
[2025-03-13 13:10] LABS: ALT/SGPT 21.0 U/L (7.0-40); AST/SGOT 19.0 U/L (<34); CALCIUM LEVEL 9.1 MG/DL (8.3-10.6); CARBON DIOXIDE LEVEL 32.0 MMOL/L (20-31); CHLORIDE LEVEL 106.0 MMOL/L (98-107); CHOLESTEROL LEVEL 174.0 MG/DL (<200); CHOLESTEROL RISK RATIO 4.53 (<5); CREATININE FOR GFR 0.92 MG/DL (0.70-1.30); GLOMERULAR FILTRATION RATE 86.8 (>42); LDL CHOLESTEROL 120.0 MG/DL (<100); NON-HDL-C 135.6 MG/DL; POTASSIUM SERUM 4.6 MMOL/L (3.5-5.1); PSA SCREENING 2.29 NG/ML (< 4.00); SODIUM LEVEL 142.0 MMOL/L (136-145); TOTAL 25(OH) VITAMIN D 62.4 NG/ML (20.0-100.0); TRIGLYCERIDES LEVEL 78.0 MG/DL (<150)
== END ==
LOC: M WUC 08:27
PROVIDERS: ATTEND Nurse Practitioner Family
DX: E78.2 Mixed hyperlipidemia (principal); E55.9 Vitamin D deficiency, unspecified; N40.1 Benign prostatic hyperplasia with lower urinary tract symptoms; Z12.5 Encounter for screening for malignant neoplasm of prostate
CPT/HCPCS: 36415; 80053; 80061; 82306; G0103